=== PATIENT | female | born 1965 | race Hispanic/Latino ===

== ENCOUNTER 2017-04-20 11:23 | Emergency (ER) | payer MEDICARE ==
[2017-04-20] MEDS ORDERED: KETOROLAC TROMETHAMINE 60 MG/2 ML VIAL ONE (11:55)
== END 2017-04-20 13:06 | disposition home or self-care (01) ==
LOC: EDH 11:23
DX: R51 Headache (principal); H53.8 Other visual disturbances; E11.9 Type 2 diabetes mellitus without complications; E78.00 Pure hypercholesterolemia, unspecified; I10 Essential (primary) hypertension; Z72.0 Tobacco use; Z79.4 Long term (current) use of insulin
CPT/HCPCS: 70450; 96372; 99284; J1885

== ENCOUNTER → 2019-09-12 | Outpatient (CLI) | payer OTHER | END | disposition home or self-care (01) | LOC: RAH 08:19 | PROVIDERS: ATTEND Internal Medicine | DX: N18.3 Chronic kidney disease, stage 3 (moderate) (principal); N28.1 Cyst of kidney, acquired ==

== ENCOUNTER 2021-01-15 07:52 | Inpatient (IN) | payer OTHER ==
[2021-01-15] VITALS (12 sets, daily range): BP systolic 102–127; BP diastolic 51–63
[~2021-01-15] VITALS: Ht 160 cm; Wt 88.8 kg
[2021-01-15 08:35] LABS: BASOPHILS % (AUTO) 0.2 % (0.0-5.0); EOSINOPHILS % (AUTO) 1.1 % (0.0-8.0); HEMATOCRIT 31.7 % (36-48); LYMPHOCYTES % (AUTO) 17.8 % (21.0-51.0); MEAN CORPUSCULAR HEMOGLOBIN 29.2 pg (27.0-33.0); MEAN CORPUSCULAR VOLUME 97.5 fL (79-99); MONOCYTES % (AUTO) 5.6 % (3.0-13.0); NEUTROPHILS % (AUTO) 74.6 % (40.0-77.0); NUCLEATED RED BLOOD CELLS 0.4 % (0.0-0.19); PLATELET COUNT (AUTO) 254 K/uL (130-400); RED BLOOD CELL COUNT(AUTO) 3.25 MIL/uL (4.00-5.50); RED CELL DISTRIBUTION WIDTH 15.7 % (11.0-15.5); WHITE BLOOD COUNT (AUTO) 8.4 K/uL (4.8-10.8)
[2021-01-15 08:40] LABS: ABG BASE EXCESS -9.1 mmol/L (-2.0-3.0); ABG HCO3 19.2 mmol/L (21.0-28.0); ABG OXYGEN SATURATION 83.4 % (95.0-99.0); ABG PCO2 51 mmHg (32-45)
[2021-01-15 08:45] LABS: CREATININE 4.6 mg/dL (0.5-1.5); POTASSIUM 4.9 mmol/L (3.5-5.1)
[2021-01-15 08:56] LABS: ALBUMIN 2.7 g/dL (3.5-5.0); BILIRUBIN,TOTAL 0.2 mg/dL (0.2-1.0); TOTAL PROTEIN, SERUM 6.6 g/dL (6.0-8.3)
[2021-01-15] MEDS ORDERED: FUROSEMIDE 40MG VIAL IV SCH ×2 (09:10→11:10)
[2021-01-15] MEDS ORDERED: ASPIRIN 325MG TAB PO SCH (09:30)
[2021-01-15] MEDS ORDERED: DEXTROSE 50%-WATER 50 ML DISP.SYRIN IV ONE (10:28)
[2021-01-15] MEDS: FAMOTIDINE 20MG VIAL IV SCH (10:28)
[2021-01-15] MEDS ORDERED: GLUCAGON 1MG KIT 1 MG ML IM PRN ×2 (10:30→11:00)
[2021-01-15] MEDS ORDERED: MAGNESIUM 2GM PREMIX 50ML 50 ML IV PRN ×2 (10:30→11:00)
[2021-01-15 10:44] LABS: APPEARANCE,URINE Turbid (CLEAR); BILIRUBIN,URINE Negative (NEGATIVE); COLOR,URINE Yellow (YELLOW); GLUCOSE, URINE (UA) Negative (NEGATIVE); KETONES,URINE Negative (NEGATIVE); LEUKOCYTE ESTERASE ,URINE Negative (NEGATIVE); NITRATE,URINE Negative (NEGATIVE); OCCULT BLOOD,URINE Negative (NEGATIVE); PROTEIN,URINE 300 mg/dL (NEGATIVE); UROBILINOGEN,URINE 0.2 mg/dL (0.2-1.0)
[2021-01-15 10:46] LABS: HEMOGLOBIN A1C 8.5 % (4.0-6.0)
[2021-01-15] MEDS: HEPARIN 5,000 UNIT VIAL SQ SCH ×2 (11:00→23:04)
[2021-01-15] MEDS ORDERED: DEXTROSE 50%-WATER 50 ML DISP.SYRIN IV PRN (11:00)
[2021-01-15] MEDS: NICOTINE 14 MG/ 24 HR PATCH TD SCH (11:11)
[2021-01-15 11:36] LABS: BACTERIA,URINE Moderate /HPF (None Seen)
[2021-01-15 11:37] LABS: AMORPHOUS SEDIMENT,UR Moderate /LPF (None Seen)
[2021-01-15 11:39] LABS: RBC,URINE 0-1 /HPF (0-1)
[2021-01-15 11:53] LABS: ABG BASE EXCESS -12.2 mmol/L (-2.0-3.0); ABG HCO3 19.4 mmol/L (21.0-28.0); ABG OXYGEN SATURATION 95.6 % (95.0-99.0); ABG PCO2 71 mmHg (32-45)
[2021-01-15] MEDS ORDERED: INSULIN HUMULIN R 100 UNIT/ML 3ML SQ SCH (12:00)
[2021-01-15] MEDS ORDERED: SODIUM BICARB 50MEQ 50ML VIAL IV SCH (12:27)
[2021-01-15] MEDS ORDERED: SODIUM BICARB 50MEQ 50ML VIAL 100 ML ONE (12:27)
[2021-01-15 13:55] LABS: ABG BASE EXCESS -7.3 mmol/L (-2.0-3.0); ABG HCO3 22.4 mmol/L (21.0-28.0); ABG OXYGEN SATURATION 87.1 % (95.0-99.0); ABG PCO2 64 mmHg (32-45)
[2021-01-15] MEDS ORDERED: PROPOFOL 1000 MG/100 ML 100 ML IV ONE (14:29)
[2021-01-15] MEDS: CEFTRIAXONE 2GM VIAL IVP SCH (14:30)
[2021-01-15 15:37] LABS: ABG BASE EXCESS -6.9 mmol/L (-2.0-3.0); ABG HCO3 21.3 mmol/L (21.0-28.0); ABG OXYGEN SATURATION 96.5 % (95.0-99.0); ABG PCO2 53 mmHg (32-45)
[2021-01-15 16:22] LABS: INR 1.05 (0.85-1.15); PROTHROMBIN TIME 11.4 SEC (9.6-11.6)
[2021-01-15] MEDS: DEXTROSE 50%-WATER 50 ML DISP.SYRIN IV PRN ×2 (16:44→22:09)
[2021-01-15] MEDS ORDERED: AZITHROMYCIN 500MG VIAL IVPB SCH (17:00)
[2021-01-15] MEDS ORDERED: 0.9% NACL 250ML IVPB SCH (17:00)
[2021-01-15] MEDS ORDERED: ACETAMINOPHEN 325 MG SUPPOSITORY RC PRN (17:30)
[2021-01-15] MEDS: DEXTROSE 5%-WATER 1,000 ML IV SCH (17:30)
[2021-01-15] MEDS: ACETYLCYSTEINE 10% 100MG/ML 4ML VIAL IH SCH ×2 (18:00→23:40)
[2021-01-15] MEDS ORDERED: FENTANYL 2500MCG+NS 250ML 250 ML IV SCH (18:30)
[2021-01-15] MEDS: IPRATROPIUM/ALBUTEROL SULFATE 3 ML SOLUTION IH SCH ×2 (18:45→23:40)
[2021-01-15] MEDS: PROPOFOL 1000 MG/100 ML 100 ML IV SCH (20:30)
[2021-01-15] MEDS: INSULIN HUMULIN R 100 UNIT/ML 3ML SQ SCH (22:00)
[2021-01-15] MEDS ORDERED: AZITHROMYCIN 500MG+NS 250ML IV SCH (22:00)
[2021-01-15] MEDS: 0.9% NACL 250ML IVPB SCH (22:52)
[2021-01-15 23:25] LABS: ABG BASE EXCESS -3.1 mmol/L (-2.0-3.0); ABG HCO3 22.3 mmol/L (21.0-28.0); ABG OXYGEN SATURATION 97.4 % (95.0-99.0); ABG PCO2 41 mmHg (32-45)
[2021-01-16] VITALS (37 sets, daily range): BP systolic 80–178; BP diastolic 35–93
[2021-01-16] MEDS: INSULIN HUMULIN R 100 UNIT/ML 3ML SQ SCH ×12 (02:00→22:00)
[2021-01-16 03:56] LABS: HEMATOCRIT 26.9 % (36-48); MEAN CORPUSCULAR HEMOGLOBIN 29.2 pg (27.0-33.0); MEAN CORPUSCULAR HGB CONC 31.6 g/dL (32.0-36.0); MEAN CORPUSCULAR VOLUME 92.4 fL (79-99); PLATELET COUNT (AUTO) 261 K/uL (130-400); RED BLOOD CELL COUNT(AUTO) 2.91 MIL/uL (4.00-5.50); RED CELL DISTRIBUTION WIDTH 15.4 % (11.0-15.5); WHITE BLOOD COUNT (AUTO) 6.3 K/uL (4.8-10.8)
[2021-01-16 04:05] LABS: INR 1.1 (0.85-1.15); PROTHROMBIN TIME 11.9 SEC (9.6-11.6)
[2021-01-16 04:08] LABS: ALBUMIN 2.2 g/dL (3.5-5.0); BILIRUBIN,TOTAL 0.2 mg/dL (0.2-1.0); CREATININE 4.3 mg/dL (0.5-1.5); MAGNESIUM 2.1 mg/dL (1.80-2.40); PHOSPHORUS 5.6 mg/dL (2.5-4.9); POTASSIUM 3.5 mmol/L (3.5-5.1); TOTAL PROTEIN, SERUM 5.6 g/dL (6.0-8.3); URIC ACID 11.7 mg/dL (2.6-7.2)
[2021-01-16 04:18] LABS: ABG BASE EXCESS -5.5 mmol/L (-2.0-3.0); ABG OXYGEN SATURATION 94.8 % (95.0-99.0); ABG PCO2 34 mmHg (32-45)
[2021-01-16] MEDS: PROPOFOL 1000 MG/100 ML 100 ML IV SCH ×2 (04:36→23:49)
[2021-01-16 04:39] LABS: BASOPHILS % (MANUAL) 1 % (0-2); EOSINOPHILS % (MANUAL) 5 % (1-6); LYMPHOCYTES % (MANUAL) 10 % (22-44); MONOCYTES % (MANUAL) 6 % (2-9); SEGMENTED NEUTROPHILS % 78 % (40-70)
[2021-01-16 04:40] LABS: MAN.DIFF COMMENT-IMPRESSION MANUAL DIFFERENTIAL; PLATELET MORPHOLOGY COMMENT ADEQUATE
[2021-01-16] MEDS: IPRATROPIUM/ALBUTEROL SULFATE 3 ML SOLUTION IH SCH ×5 (07:17→23:14)
[2021-01-16] MEDS ORDERED: ENOXAPARIN SODIUM 40 MG/0.4 ML SYRINGE SQ SCH (09:00)
[2021-01-16] MEDS: NICOTINE 14 MG/ 24 HR PATCH TD SCH (09:00)
[2021-01-16] MEDS: FAMOTIDINE 20MG VIAL IV SCH (09:00)
[2021-01-16] MEDS ORDERED: POTASSIUM CHLORIDE 10MEQ/100ML 100 ML IV ONE (09:41)
[2021-01-16] MEDS: ACETYLCYSTEINE 10% 100MG/ML 4ML VIAL IH SCH ×4 (11:16→23:14)
[2021-01-16] MEDS: HEPARIN 5,000 UNIT VIAL SQ SCH ×2 (11:24→23:05)
[2021-01-16] MEDS: FLUCONAZOLE 400 MG/NS 200 ML 200 ML IV SCH (11:53)
[2021-01-16] MEDS: METOCLOPRAMIDE 10 MG/2 ML VIAL IVP SCH ×2 (11:53→18:12)
[2021-01-16] MEDS ORDERED: PERFLUTREN PROTEIN-A MICROSPHR 0.22 MG/ML VIAL IV SCH (14:00)
[2021-01-16] MEDS: DEXTROSE 5%-WATER 1,000 ML IV SCH (14:16)
[2021-01-16] MEDS: CEFTRIAXONE 2GM VIAL IVP SCH (14:17)
[2021-01-16] MEDS ORDERED: LIDOCAINE HCL 1% MDV 50ML VIAL ONE (15:23)
[2021-01-16] MEDS ORDERED: HEPARIN 1,000 UNIT VIAL ONE (15:23)
[2021-01-16] MEDS: 0.9% NACL 250ML IVPB SCH (20:39)
[2021-01-17] VITALS (76 sets, daily range): BP systolic 77–166; BP diastolic 30–83
[2021-01-17] MEDS: IPRATROPIUM/ALBUTEROL SULFATE 3 ML SOLUTION IH SCH ×6 (01:37→22:45)
[2021-01-17] MEDS: ACETYLCYSTEINE 10% 100MG/ML 4ML VIAL IH SCH ×6 (01:37→22:45)
[2021-01-17] MEDS: INSULIN HUMULIN R 100 UNIT/ML 3ML SQ SCH ×11 (02:00→20:00)
[2021-01-17] MEDS: PROPOFOL 1000 MG/100 ML 100 ML IV SCH ×4 (03:47→22:30)
[2021-01-17 03:49] LABS: HEMATOCRIT 29.8 % (36-48); MEAN CORPUSCULAR HEMOGLOBIN 29.3 pg (27.0-33.0); MEAN CORPUSCULAR HGB CONC 30.9 g/dL (32.0-36.0); MEAN CORPUSCULAR VOLUME 94.9 fL (79-99); RED BLOOD CELL COUNT(AUTO) 3.14 MIL/uL (4.00-5.50); RED CELL DISTRIBUTION WIDTH 16.1 % (11.0-15.5)
[2021-01-17 03:51] LABS: ABG BASE EXCESS -5.8 mmol/L (-2.0-3.0); ABG HCO3 21.3 mmol/L (21.0-28.0); ABG OXYGEN SATURATION 96.3 % (95.0-99.0); ABG PCO2 47 mmHg (32-45)
[2021-01-17 04:03] LABS: ALBUMIN 2.1 g/dL (3.5-5.0); BILIRUBIN,TOTAL 0.2 mg/dL (0.2-1.0); CREATININE 4.2 mg/dL (0.5-1.5); POTASSIUM 4.1 mmol/L (3.5-5.1); TOTAL PROTEIN, SERUM 5.8 g/dL (6.0-8.3)
[2021-01-17] MEDS: METOCLOPRAMIDE 10 MG/2 ML VIAL IVP SCH ×3 (06:37→16:55)
[2021-01-17] MEDS: NICOTINE 14 MG/ 24 HR PATCH TD SCH (07:55)
[2021-01-17] MEDS: HEPARIN 5,000 UNIT VIAL SQ SCH ×2 (08:00→17:20)
[2021-01-17] MEDS: FLUCONAZOLE 400 MG/NS 200 ML 200 ML IV SCH (08:00)
[2021-01-17] MEDS: FAMOTIDINE 20MG VIAL IV SCH (08:00)
[2021-01-17] MEDS: DEXTROSE 5%-WATER 1,000 ML IV SCH (08:01)
[2021-01-17 08:04] LABS: INR 1.08 (0.85-1.15); PROTHROMBIN TIME 11.7 SEC (9.6-11.6)
[2021-01-17 08:05] LABS: PARTIAL THROMBOPLASTIN TIME 28.9 SEC (26.3-35.5)
[2021-01-17] MEDS ORDERED: LISINOPRIL 20 MG TABLET PO SCH (09:00)
[2021-01-17] MEDS ORDERED: NOREPINEPHRIN 8MG/250ML NS PMX 250 ML IV PRN (09:30)
[2021-01-17] MEDS ORDERED: LACTULOSE 20 GM/30 ML UDCUP PO PRN (09:30)
[2021-01-17] MEDS ORDERED: PHARMACY COMMUNICATION MISC SCH ×2 (09:30→16:30)
[2021-01-17 09:43] LABS: CHOLESTEROL 116 mg/dL (<200); HDL CHOLESTEROL 33 mg/dL (35-85); LDL DIRECT 43 mg/dL (0-99); TRIGLYCERIDES 271 mg/dL (30-200)
[2021-01-17 09:56] LABS: % IRON SATURATION 9.2 % (22-44)
[2021-01-17] MEDS ORDERED: NOREPINEPHRIN 4MG/NS 250ML 250 ML IV SCH (10:00)
[2021-01-17] MEDS: CEFTRIAXONE 2GM VIAL IVP SCH (13:30)
[2021-01-17] MEDS ORDERED: 0.9%NACL 1000ML 2,000 ML IV ONE (14:21)
[2021-01-17] MEDS ORDERED: ALBUMIN (HUMAN) 25% 100 ML IV PRN (16:00)
[2021-01-17] MEDS: 0.9% NACL 250ML IVPB SCH (22:00)
[2021-01-18] VITALS (79 sets, daily range): BP systolic 99–202; BP diastolic 28–98
[2021-01-18] MEDS: PROPOFOL 1000 MG/100 ML 100 ML IV SCH ×7 (01:27→23:38)
[2021-01-18] MEDS: IPRATROPIUM/ALBUTEROL SULFATE 3 ML SOLUTION IH SCH ×6 (02:52→21:57)
[2021-01-18] MEDS: ACETYLCYSTEINE 10% 100MG/ML 4ML VIAL IH SCH ×6 (02:52→21:57)
[2021-01-18 05:33] LABS: HEMATOCRIT 29.3 % (36-48); MEAN CORPUSCULAR HEMOGLOBIN 29.2 pg (27.0-33.0); MEAN CORPUSCULAR HGB CONC 31.4 g/dL (32.0-36.0); RED BLOOD CELL COUNT(AUTO) 3.15 MIL/uL (4.00-5.50); RED CELL DISTRIBUTION WIDTH 15.8 % (11.0-15.5); WHITE BLOOD COUNT (AUTO) 5.9 K/uL (4.8-10.8)
[2021-01-18] MEDS: INSULIN HUMULIN R 100 UNIT/ML 3ML SQ SCH ×3 (05:41→12:00)
[2021-01-18 05:42] LABS: CREATININE 3.5 mg/dL (0.5-1.5); POTASSIUM 3.8 mmol/L (3.5-5.1)
[2021-01-18 08:15] LABS: HEPATITIS Bs ANTIGEN SCREEN P Negative (Negative)
[2021-01-18] MEDS: METOCLOPRAMIDE 10 MG/2 ML VIAL IVP SCH ×3 (08:22→15:20)
[2021-01-18] MEDS: NICOTINE 14 MG/ 24 HR PATCH TD SCH (08:23)
[2021-01-18] MEDS: FLUCONAZOLE 400 MG/NS 200 ML 200 ML IV SCH (08:23)
[2021-01-18] MEDS: FAMOTIDINE 20MG VIAL IV SCH (08:23)
[2021-01-18] MEDS ORDERED: LINA72CA PO (08:26)
[2021-01-18] MEDS ORDERED: FLUT1BLS IH (08:26)
[2021-01-18] MEDS ORDERED: GABA-529 PO (08:26)
[2021-01-18] MEDS ORDERED: AMLO-257 PO (08:26)
[2021-01-18] MEDS ORDERED: INSU100I13 SQ ×2 (08:26)
[2021-01-18] MEDS ORDERED: FOLI0.8T22 PO (08:26)
[2021-01-18] MEDS ORDERED: FERR325T29 PO (08:26)
[2021-01-18] MEDS ORDERED: ERGO500093 PO (08:26)
[2021-01-18] MEDS ORDERED: FURO20TA4 PO (08:26)
[2021-01-18] MEDS ORDERED: CALC667C10 PO (08:26)
[2021-01-18] MEDS ORDERED: ATOR20TA65 PO (08:26)
[2021-01-18] MEDS ORDERED: SODI650T PO (08:26)
[2021-01-18] MEDS ORDERED: LOSA50TA64 PO (08:26)
[2021-01-18] MEDS ORDERED: METO-408 PO (08:26)
[2021-01-18] MEDS ORDERED: SODI10PO2 PO (08:26)
[2021-01-18] MEDS: HEPARIN 5,000 UNIT VIAL SQ SCH ×2 (11:00→23:01)
[2021-01-18] MEDS ORDERED: HEPARIN 5,000 UNIT VIAL IV SCH (11:30)
[2021-01-18] MEDS ORDERED: PHARMACY COMMUNICATION MISC SCH (15:30)
[2021-01-18] MEDS: ZOSYN 3.375GM +NS 50ML IV SCH (17:15)
[2021-01-18] MEDS: 0.9% NACL 250ML IVPB SCH (22:00)
[2021-01-19] VITALS (35 sets, daily range): BP systolic 100–202; BP diastolic 56–97
[2021-01-19] MEDS: PROPOFOL 1000 MG/100 ML 100 ML IV SCH ×4 (01:14→09:56)
[2021-01-19] MEDS: IPRATROPIUM/ALBUTEROL SULFATE 3 ML SOLUTION IH SCH ×6 (02:50→23:13)
[2021-01-19] MEDS: ACETYLCYSTEINE 10% 100MG/ML 4ML VIAL IH SCH ×6 (02:51→23:13)
[2021-01-19] MEDS: ZOSYN 3.375GM +NS 50ML IV SCH ×2 (04:56→19:30)
[2021-01-19] MEDS: INSULIN HUMULIN R 100 UNIT/ML 3ML SQ SCH ×4 (06:00→18:00)
[2021-01-19] MEDS: METOCLOPRAMIDE 10 MG/2 ML VIAL IVP SCH ×3 (06:50→17:00)
[2021-01-19] MEDS: FAMOTIDINE 20MG VIAL IV SCH (08:21)
[2021-01-19] MEDS: NICOTINE 14 MG/ 24 HR PATCH TD SCH (08:21)
[2021-01-19] MEDS: HEPARIN 5,000 UNIT VIAL SQ SCH ×2 (09:59→23:49)
[2021-01-19] MEDS ORDERED: FENTANYL 2500MCG+NS 250ML 250 ML IV ONE ×2 (10:19→22:46)
[2021-01-19] MEDS ORDERED: FENTANYL CITRATE PF 0.05 MG/ML 2,500 MCG in 0.9%NACL 100ML 250 ML IVPB SCH (10:30)
[2021-01-19] MEDS: MIDAZOLAM 100MG-0.9% NS 100ML 100ML BAG IV SCH (10:51)
[2021-01-19] MEDS ORDERED: 0.9%NACL 1000ML 1,000 ML IV ONE (17:27)
[2021-01-19] MEDS: HEPARIN 5,000 UNIT VIAL IV SCH (19:21)
[2021-01-19] MEDS: 0.9% NACL 250ML IVPB SCH (22:00)
[2021-01-20] VITALS (23 sets, daily range): BP systolic 108–160; BP diastolic 47–68
[2021-01-20] MEDS: ACETYLCYSTEINE 10% 100MG/ML 4ML VIAL IH SCH ×3 (02:02→09:32)
[2021-01-20] MEDS: IPRATROPIUM/ALBUTEROL SULFATE 3 ML SOLUTION IH SCH ×5 (02:02→23:16)
[2021-01-20] MEDS: MIDAZOLAM 100MG-0.9% NS 100ML 100ML BAG IV SCH (03:22)
[2021-01-20] MEDS: ZOSYN 3.375GM +NS 50ML IV SCH ×2 (03:51→16:12)
[2021-01-20] MEDS: INSULIN HUMULIN R 100 UNIT/ML 3ML SQ SCH ×4 (06:00→17:50)
[2021-01-20 08:17] LABS: HEMATOCRIT 32.3 % (36-48); MEAN CORPUSCULAR HEMOGLOBIN 28.5 pg (27.0-33.0); RED BLOOD CELL COUNT(AUTO) 3.51 MIL/uL (4.00-5.50); RED CELL DISTRIBUTION WIDTH 15.5 % (11.0-15.5); WHITE BLOOD COUNT (AUTO) 6.7 K/uL (4.8-10.8)
[2021-01-20 08:28] LABS: CREATININE 3.8 mg/dL (0.5-1.5)
[2021-01-20] MEDS: METOCLOPRAMIDE 10 MG/2 ML VIAL IVP SCH ×3 (09:37→18:01)
[2021-01-20] MEDS: FAMOTIDINE 20MG VIAL IV SCH (09:37)
[2021-01-20] MEDS: NICOTINE 14 MG/ 24 HR PATCH TD SCH (09:39)
[2021-01-20] MEDS: SOLU-MEDROL 40MG VIAL IVP SCH ×2 (13:24→18:01)
[2021-01-20] MEDS: HEPARIN 5,000 UNIT VIAL SQ SCH ×2 (13:26→22:21)
[2021-01-20] MEDS: FENTANYL 2500MCG+NS 250ML 250 ML IV SCH (19:01)
[2021-01-20] MEDS: 0.9% NACL 250ML IVPB SCH (21:05)
[2021-01-21] VITALS (37 sets, daily range): BP systolic 109–174; BP diastolic 45–78
[2021-01-21] MEDS: SOLU-MEDROL 40MG VIAL IVP SCH ×4 (00:11→18:26)
[2021-01-21] MEDS: INSULIN HUMULIN R 100 UNIT/ML 3ML SQ SCH ×4 (00:33→18:00)
[2021-01-21] MEDS: MIDAZOLAM 100MG-0.9% NS 100ML 100ML BAG IV SCH ×2 (03:45→22:51)
[2021-01-21 03:47] LABS: ABG OXYGEN SATURATION 92.3 % (95.0-99.0); ABG PCO2 41 mmHg (32-45)
[2021-01-21] MEDS: ZOSYN 3.375GM +NS 50ML IV SCH ×2 (04:00→16:47)
[2021-01-21 05:44] LABS: BASOPHILS % (AUTO) 0.4 % (0.0-5.0); HEMATOCRIT 31.1 % (36-48); LYMPHOCYTES % (AUTO) 6.7 % (21.0-51.0); MEAN CORPUSCULAR HGB CONC 31.2 g/dL (32.0-36.0); MEAN CORPUSCULAR VOLUME 92.8 fL (79-99); PLATELET COUNT (AUTO) 275 K/uL (130-400); RED BLOOD CELL COUNT(AUTO) 3.35 MIL/uL (4.00-5.50); RED CELL DISTRIBUTION WIDTH 15.2 % (11.0-15.5); WHITE BLOOD COUNT (AUTO) 6.7 K/uL (4.8-10.8)
[2021-01-21 05:55] LABS: CREATININE 5.1 mg/dL (0.5-1.5); MAGNESIUM 2.7 mg/dL (1.80-2.40); POTASSIUM 5.8 mmol/L (3.5-5.1)
[2021-01-21 05:57] LABS: INR 1.01 (0.85-1.15)
[2021-01-21 05:58] LABS: PARTIAL THROMBOPLASTIN TIME 29.1 SEC (26.3-35.5)
[2021-01-21] MEDS: IPRATROPIUM/ALBUTEROL SULFATE 3 ML SOLUTION IH SCH ×4 (06:41→23:13)
[2021-01-21] MEDS ORDERED: DIATR MEGLU/DIATRIZOATE SODIUM 30 ML BOTTLE ONE (08:32)
[2021-01-21] MEDS: NICOTINE 14 MG/ 24 HR PATCH TD SCH (08:35)
[2021-01-21] MEDS: FAMOTIDINE 20MG VIAL IV SCH (08:36)
[2021-01-21] MEDS: METOCLOPRAMIDE 10 MG/2 ML VIAL IVP SCH ×3 (08:36→18:26)
[2021-01-21] MEDS: HEPARIN 5,000 UNIT VIAL SQ SCH ×2 (10:54→19:10)
[2021-01-21] MEDS ORDERED: 0.9%NACL 50ML 50 ML IV ONE (16:51)
[2021-01-21] MEDS ORDERED: 0.9%NACL 1000ML 1,000 ML IV ONE (18:19)
[2021-01-21] MEDS: 0.9% NACL 250ML IVPB SCH (21:19)
[2021-01-21] MEDS: BALSAM PERU/CASTOR OIL 60 GM TUBE TP SCH (21:21)
[2021-01-21] MEDS: FENTANYL 2500MCG+NS 250ML 250 ML IV SCH (22:54)
[2021-01-22] VITALS (23 sets, daily range): BP systolic 99–158; BP diastolic 47–71
[2021-01-22] MEDS: SOLU-MEDROL 40MG VIAL IVP SCH ×3 (00:05→17:54)
[2021-01-22] MEDS: INSULIN HUMULIN R 100 UNIT/ML 3ML SQ SCH ×5 (00:07→23:34)
[2021-01-22] MEDS ORDERED: 0.9%NACL 50ML 50 ML IV ONE ×2 (04:25→23:53)
[2021-01-22] MEDS: ZOSYN 3.375GM +NS 50ML IV SCH ×2 (05:18→17:54)
[2021-01-22 05:32] LABS: BASOPHILS % (AUTO) 0.1 % (0.0-5.0); HEMATOCRIT 32.5 % (36-48); LYMPHOCYTES % (AUTO) 5.9 % (21.0-51.0); MEAN CORPUSCULAR HEMOGLOBIN 28.3 pg (27.0-33.0); MEAN CORPUSCULAR HGB CONC 30.8 g/dL (32.0-36.0); MEAN CORPUSCULAR VOLUME 92.1 fL (79-99); MONOCYTES % (AUTO) 3.2 % (3.0-13.0); NEUTROPHILS % (AUTO) 89.7 % (40.0-77.0); PLATELET COUNT (AUTO) 284 K/uL (130-400); RED BLOOD CELL COUNT(AUTO) 3.53 MIL/uL (4.00-5.50); RED CELL DISTRIBUTION WIDTH 14.9 % (11.0-15.5); WHITE BLOOD COUNT (AUTO) 7.6 K/uL (4.8-10.8)
[2021-01-22 05:52] LABS: CREATININE 4.3 mg/dL (0.5-1.5); MAGNESIUM 2.5 mg/dL (1.80-2.40); PHOSPHORUS 12.1 mg/dL (2.5-4.9); POTASSIUM 5.2 mmol/L (3.5-5.1)
[2021-01-22 06:12] LABS: ABG BASE EXCESS -8.2 mmol/L (-2.0-3.0); ABG HCO3 16.6 mmol/L (21.0-28.0); ABG OXYGEN SATURATION 94.6 % (95.0-99.0); ABG PCO2 33 mmHg (32-45)
[2021-01-22] MEDS: IPRATROPIUM/ALBUTEROL SULFATE 3 ML SOLUTION IH SCH ×4 (06:30→23:21)
[2021-01-22] MEDS: METOCLOPRAMIDE 10 MG/2 ML VIAL IVP SCH ×3 (07:30→18:33)
[2021-01-22] MEDS: FAMOTIDINE 20MG VIAL IV SCH (08:24)
[2021-01-22] MEDS: NICOTINE 14 MG/ 24 HR PATCH TD SCH (08:24)
[2021-01-22] MEDS: BALSAM PERU/CASTOR OIL 60 GM TUBE TP SCH ×3 (08:25→20:16)
[2021-01-22] MEDS: HEPARIN 5,000 UNIT VIAL SQ SCH ×2 (11:59→23:32)
[2021-01-22] MEDS: CHLORHEXIDINE GLUCONATE 473 ML MOUTHWASH MM SCH ×3 (12:00→23:48)
[2021-01-22] MEDS: 0.9% NACL 250ML IVPB SCH (20:15)
[2021-01-22] MEDS: MIDAZOLAM 100MG-0.9% NS 100ML 100ML BAG IV SCH (21:43)
[2021-01-22] MEDS: FENTANYL 2500MCG+NS 250ML 250 ML IV SCH (21:46)
[2021-01-23] VITALS (57 sets, daily range): BP systolic 90–165; BP diastolic 42–87
[2021-01-23] MEDS: METOCLOPRAMIDE 10 MG/2 ML VIAL IVP SCH ×4 (00:31→17:19)
[2021-01-23] MEDS: ZOSYN 3.375GM +NS 50ML IV SCH ×2 (04:04→18:26)
[2021-01-23 04:20] LABS: HEMATOCRIT 29.6 % (36-48); MEAN CORPUSCULAR HEMOGLOBIN 28.5 pg (27.0-33.0); MEAN CORPUSCULAR HGB CONC 31.1 g/dL (32.0-36.0); MEAN CORPUSCULAR VOLUME 91.6 fL (79-99); RED BLOOD CELL COUNT(AUTO) 3.23 MIL/uL (4.00-5.50); RED CELL DISTRIBUTION WIDTH 14.4 % (11.0-15.5); WHITE BLOOD COUNT (AUTO) 10.9 K/uL (4.8-10.8)
[2021-01-23 04:21] LABS: POTASSIUM 4.3 mmol/L (3.5-5.1)
[2021-01-23] MEDS: INSULIN HUMULIN R 100 UNIT/ML 3ML SQ SCH ×3 (05:55→17:33)
[2021-01-23] MEDS: SOLU-MEDROL 40MG VIAL IVP SCH ×2 (05:55→17:18)
[2021-01-23] MEDS: CHLORHEXIDINE GLUCONATE 473 ML MOUTHWASH MM SCH ×3 (05:56→17:19)
[2021-01-23] MEDS: IPRATROPIUM/ALBUTEROL SULFATE 3 ML SOLUTION IH SCH ×3 (06:45→18:31)
[2021-01-23] MEDS: BALSAM PERU/CASTOR OIL 60 GM TUBE TP SCH ×3 (08:52→21:00)
[2021-01-23] MEDS: NICOTINE 14 MG/ 24 HR PATCH TD SCH (08:52)
[2021-01-23] MEDS: FAMOTIDINE 20MG VIAL IV SCH (08:52)
[2021-01-23] MEDS: HEPARIN 5,000 UNIT VIAL SQ SCH ×2 (11:16→22:43)
[2021-01-23] MEDS ORDERED: 0.9%NACL 1000ML 1,000 ML IV ONE (14:17)
[2021-01-23] MEDS: DEXMEDETOMIDINE 400MCG/NS100ML IV SCH ×2 (16:26→22:29)
[2021-01-23] MEDS: HEPARIN 5,000 UNIT VIAL IV SCH (18:14)
[2021-01-23] MEDS: 0.9% NACL 250ML IVPB SCH (22:00)
[2021-01-24] VITALS (36 sets, daily range): BP systolic 96–177; BP diastolic 39–104
[2021-01-24] MEDS: CHLORHEXIDINE GLUCONATE 473 ML MOUTHWASH MM SCH ×4 (00:31→18:00)
[2021-01-24] MEDS: IPRATROPIUM/ALBUTEROL SULFATE 3 ML SOLUTION IH SCH ×4 (00:46→18:14)
[2021-01-24] MEDS: INSULIN HUMULIN R 100 UNIT/ML 3ML SQ SCH ×4 (01:15→18:00)
[2021-01-24] MEDS: METOCLOPRAMIDE 10 MG/2 ML VIAL IVP SCH ×4 (02:29→19:30)
[2021-01-24] MEDS ORDERED: CYCL30DR OP (04:06)
[2021-01-24] MEDS: ZOSYN 3.375GM +NS 50ML IV SCH ×2 (04:11→17:44)
[2021-01-24 04:19] LABS: BASOPHILS % (AUTO) 0.2 % (0.0-5.0); HEMATOCRIT 31.4 % (36-48); LYMPHOCYTES % (AUTO) 8.5 % (21.0-51.0); MEAN CORPUSCULAR HEMOGLOBIN 28.3 pg (27.0-33.0); MEAN CORPUSCULAR HGB CONC 31.5 g/dL (32.0-36.0); MEAN CORPUSCULAR VOLUME 89.7 fL (79-99); MONOCYTES % (AUTO) 6.4 % (3.0-13.0); NEUTROPHILS % (AUTO) 84.3 % (40.0-77.0); PLATELET COUNT (AUTO) 259 K/uL (130-400); RED CELL DISTRIBUTION WIDTH 14.2 % (11.0-15.5); WHITE BLOOD COUNT (AUTO) 8.6 K/uL (4.8-10.8)
[2021-01-24 04:31] LABS: CREATININE 3.9 mg/dL (0.5-1.5); POTASSIUM 3.6 mmol/L (3.5-5.1)
[2021-01-24] MEDS: DEXMEDETOMIDINE 400MCG/NS100ML IV SCH (06:20)
[2021-01-24] MEDS: SOLU-MEDROL 40MG VIAL IVP SCH ×2 (06:22→17:44)
[2021-01-24 08:11] LABS: ABG BASE EXCESS -5.9 mmol/L (-2.0-3.0); ABG HCO3 19.8 mmol/L (21.0-28.0); ABG OXYGEN SATURATION 94.3 % (95.0-99.0); ABG PCO2 40 mmHg (32-45)
[2021-01-24] MEDS ORDERED: SODIUM BICARB 50MEQ 50ML VIAL IV SCH (08:30)
[2021-01-24] MEDS: NICOTINE 14 MG/ 24 HR PATCH TD SCH (09:32)
[2021-01-24] MEDS: FAMOTIDINE 20MG VIAL IV SCH (09:32)
[2021-01-24] MEDS: BALSAM PERU/CASTOR OIL 60 GM TUBE TP SCH ×3 (09:33→21:30)
[2021-01-24] MEDS: HEPARIN 5,000 UNIT VIAL SQ SCH (09:47)
[2021-01-24] MEDS ORDERED: HYDRALAZINE 20MG/ML VIAL IV PRN (10:00)
[2021-01-24] MEDS: SODIUM BICARBONATE 650 MG TAB PO SCH ×3 (11:30→21:00)
[2021-01-24] MEDS ORDERED: GLYCOPYRROLATE 1 MG/5 ML SYRINGE IV SCH (17:30)
[2021-01-24] MEDS: 0.9% NACL 250ML IVPB SCH (22:00)
[2021-01-25 00:02] VITALS: BP 142/60
[2021-01-25] MEDS: HEPARIN 5,000 UNIT VIAL SQ SCH ×3 (00:21→21:53)
[2021-01-25] MEDS: INSULIN HUMULIN R 100 UNIT/ML 3ML SQ SCH ×4 (00:24→18:00)
[2021-01-25] MEDS: METOCLOPRAMIDE 10 MG/2 ML VIAL IVP SCH ×4 (00:26→19:51)
[2021-01-25] MEDS: IPRATROPIUM/ALBUTEROL SULFATE 3 ML SOLUTION IH SCH ×4 (00:34→18:50)
[2021-01-25 03:02] VITALS: BP 141/59
[2021-01-25 03:53] LABS: HEMATOCRIT 34.4 % (36-48); MEAN CORPUSCULAR HGB CONC 31.4 g/dL (32.0-36.0); MEAN CORPUSCULAR VOLUME 92.2 fL (79-99); PLATELET COUNT (AUTO) 275 K/uL (130-400); RED BLOOD CELL COUNT(AUTO) 3.73 MIL/uL (4.00-5.50); RED CELL DISTRIBUTION WIDTH 14.1 % (11.0-15.5); WHITE BLOOD COUNT (AUTO) 15.7 K/uL (4.8-10.8)
[2021-01-25 04:02] VITALS: BP 156/66
[2021-01-25 04:06] LABS: ALBUMIN 2.6 g/dL (3.5-5.0); BILIRUBIN,TOTAL 0.3 mg/dL (0.2-1.0); CREATININE 5.1 mg/dL (0.5-1.5); PHOSPHORUS 7.4 mg/dL (2.5-4.9); POTASSIUM 3.2 mmol/L (3.5-5.1); TOTAL PROTEIN, SERUM 7.2 g/dL (6.0-8.3)
[2021-01-25 04:55] LABS: BAND NEUTROPHILS % (MANUAL) 3 % (0-2); LYMPHOCYTES % (MANUAL) 7 % (22-44); MONOCYTES % (MANUAL) 7 % (2-9); REACTIVE LYMPHOCYTES 3 % (0-0); SEGMENTED NEUTROPHILS % 80 % (40-70)
[2021-01-25 04:56] LABS: MAN.DIFF COMMENT-IMPRESSION MANUAL DIFFERENTIAL; PLATELET MORPHOLOGY COMMENT ADEQUATE
[2021-01-25] MEDS: ZOSYN 3.375GM +NS 50ML IV SCH ×2 (05:07→18:25)
[2021-01-25] MEDS: SOLU-MEDROL 40MG VIAL IVP SCH ×2 (05:07→18:24)
[2021-01-25] MEDS: CHLORHEXIDINE GLUCONATE 473 ML MOUTHWASH MM SCH ×4 (05:52→18:00)
[2021-01-25] MEDS: SODIUM BICARBONATE 650 MG TAB PO SCH ×2 (07:30→11:30)
[2021-01-25] MEDS: BALSAM PERU/CASTOR OIL 60 GM TUBE TP SCH ×2 (07:55→21:00)
[2021-01-25] MEDS: FAMOTIDINE 20MG VIAL IV SCH (07:55)
[2021-01-25] MEDS: NICOTINE 14 MG/ 24 HR PATCH TD SCH (09:00)
[2021-01-25 18:03] VITALS: BP 150/77
[2021-01-25] MEDS: M.V.I. IV [ADULT] 10 ML in CLINIMIX-E4.25%AA/D5+LYT2000ML 2,000 ML IV SCH (18:54)
[2021-01-25 20:00] VITALS: BP 153/70
[2021-01-25] MEDS: 0.9% NACL 250ML IVPB SCH (22:00)
[2021-01-26] VITALS: BP 171/84
[2021-01-26] MEDS: IPRATROPIUM/ALBUTEROL SULFATE 3 ML SOLUTION IH SCH ×5 (00:25→23:35)
[2021-01-26] MEDS: INSULIN HUMULIN R 100 UNIT/ML 3ML SQ SCH ×4 (02:39→16:07)
[2021-01-26] MEDS: METOCLOPRAMIDE 10 MG/2 ML VIAL IVP SCH ×4 (02:43→20:59)
[2021-01-26 04:00] VITALS: BP 170/70
[2021-01-26 05:51] LABS: HEMATOCRIT 35.1 % (36-48); MEAN CORPUSCULAR HEMOGLOBIN 28.7 pg (27.0-33.0); MEAN CORPUSCULAR HGB CONC 31.1 g/dL (32.0-36.0); MEAN CORPUSCULAR VOLUME 92.4 fL (79-99); RED BLOOD CELL COUNT(AUTO) 3.8 MIL/uL (4.00-5.50); RED CELL DISTRIBUTION WIDTH 14.2 % (11.0-15.5); WHITE BLOOD COUNT (AUTO) 11.2 K/uL (4.8-10.8)
[2021-01-26] MEDS: CHLORHEXIDINE GLUCONATE 473 ML MOUTHWASH MM SCH ×4 (06:00→16:07)
[2021-01-26 06:02] LABS: CREATININE 5.2 mg/dL (0.5-1.5); POTASSIUM 3.5 mmol/L (3.5-5.1)
[2021-01-26] MEDS: ZOSYN 3.375GM +NS 50ML IV SCH ×2 (06:02→16:06)
[2021-01-26] MEDS: SOLU-MEDROL 40MG VIAL IVP SCH ×2 (06:02→20:59)
[2021-01-26] MEDS: FAMOTIDINE 20MG VIAL IV SCH (07:48)
[2021-01-26] MEDS: BALSAM PERU/CASTOR OIL 60 GM TUBE TP SCH ×3 (07:49→21:00)
[2021-01-26 08:00] VITALS: BP 177/68
[2021-01-26] MEDS: NICOTINE 14 MG/ 24 HR PATCH TD SCH (08:33)
[2021-01-26] MEDS ORDERED: PHARMACY COMMUNICATION MISC SCH (10:00)
[2021-01-26] MEDS: HEPARIN 5,000 UNIT VIAL SQ SCH ×2 (10:32→23:00)
[2021-01-26] MEDS: M.V.I. IV [ADULT] 10 ML in CLINIMIX-E4.25%AA/D5+LYT2000ML 2,000 ML IV SCH (10:55)
[2021-01-26 12:00] VITALS: BP 173/94
[2021-01-26] MEDS ORDERED: CLINIMIX-E4.25%AA/D5+LYT2000ML 2,000 ML IV ONE (14:00)
[2021-01-26 16:00] VITALS: BP 192/88
[2021-01-26] MEDS: 0.9% NACL 250ML IVPB SCH (19:44)
[2021-01-26 20:00] VITALS: BP 154/80
[2021-01-27] VITALS (35 sets, daily range): BP systolic 96–188; BP diastolic 51–119
[2021-01-27] MEDS: INSULIN HUMULIN R 100 UNIT/ML 3ML SQ SCH ×5 (00:11→22:33)
[2021-01-27] MEDS: CHLORHEXIDINE GLUCONATE 473 ML MOUTHWASH MM SCH ×4 (00:12→16:43)
[2021-01-27] MEDS: METOCLOPRAMIDE 10 MG/2 ML VIAL IVP SCH ×4 (02:16→16:44)
[2021-01-27] MEDS: IPRATROPIUM/ALBUTEROL SULFATE 3 ML SOLUTION IH SCH ×6 (03:35→22:39)
[2021-01-27] MEDS: ZOSYN 3.375GM +NS 50ML IV SCH ×2 (05:04→16:23)
[2021-01-27] MEDS: SOLU-MEDROL 40MG VIAL IVP SCH ×2 (06:58→18:09)
[2021-01-27 10:01] LABS: ABG HCO3 18.7 mmol/L (21.0-28.0); ABG OXYGEN SATURATION 91.9 % (95.0-99.0); ABG PCO2 34 mmHg (32-45)
[2021-01-27] MEDS: FAMOTIDINE 20MG VIAL IV SCH (10:01)
[2021-01-27] MEDS: NICOTINE 14 MG/ 24 HR PATCH TD SCH (10:01)
[2021-01-27] MEDS: BALSAM PERU/CASTOR OIL 60 GM TUBE TP SCH ×3 (10:04→20:42)
[2021-01-27 10:14] LABS: HEMATOCRIT 33.6 % (36-48); MEAN CORPUSCULAR HEMOGLOBIN 28.5 pg (27.0-33.0); MEAN CORPUSCULAR HGB CONC 31.8 g/dL (32.0-36.0); MEAN CORPUSCULAR VOLUME 89.6 fL (79-99); RED BLOOD CELL COUNT(AUTO) 3.75 MIL/uL (4.00-5.50); RED CELL DISTRIBUTION WIDTH 13.9 % (11.0-15.5); WHITE BLOOD COUNT (AUTO) 9.6 K/uL (4.8-10.8)
[2021-01-27 10:32] LABS: CREATININE 4.6 mg/dL (0.5-1.5); POTASSIUM 3.6 mmol/L (3.5-5.1)
[2021-01-27] MEDS: HEPARIN 5,000 UNIT VIAL SQ SCH ×2 (11:00→22:28)
[2021-01-27] MEDS: METOPROLOL TARTRATE 1 MG/ML 5ML VIAL IV PRN ×3 (13:16→14:10)
[2021-01-27] MEDS ORDERED: HEPARIN 1,000 UNIT VIAL ONE (14:37)
[2021-01-27] MEDS ORDERED: LIDOCAINE HCL 1% MDV 50ML VIAL ONE (14:38)
[2021-01-27] MEDS ORDERED: LORAZEPAM 2 MG/ML 1 ML VIAL IVP ONE (15:10)
[2021-01-27] MEDS ORDERED: DILTIAZEM 25MG INJ IVP ONE (15:56)
[2021-01-27] MEDS: DILTIAZEM 125 MG/25 ML INJ 125 MG in 0.9%NACL 100ML 100 ML IV PRN (16:24)
[2021-01-27] MEDS ORDERED: DILTIAZEM 25MG INJ IVP SCH (17:00)
[2021-01-27] MEDS ORDERED: INSULIN REGULAR, HUMAN 3ML 100 UNIT in 0.9%NACL 100ML 99 ML IV SCH ×2 (17:00)
[2021-01-27] MEDS ORDERED: INSULIN GLARGINE 100 UNITS/ML 10 ML VIAL SQ ONE (17:00)
[2021-01-27] MEDS: 0.9% NACL 250ML IVPB SCH (20:42)
[2021-01-27] MEDS: INSULIN GLARGINE 100 UNITS/ML 10 ML VIAL SQ SCH (20:48)
[2021-01-28] VITALS (42 sets, daily range): BP systolic 91–180; BP diastolic 46–107
[2021-01-28] MEDS: CHLORHEXIDINE GLUCONATE 473 ML MOUTHWASH MM SCH ×4 (00:05→17:17)
[2021-01-28] MEDS: METOCLOPRAMIDE 10 MG/2 ML VIAL IVP SCH ×4 (00:05→17:18)
[2021-01-28] MEDS: IPRATROPIUM/ALBUTEROL SULFATE 3 ML SOLUTION IH SCH ×6 (01:48→23:35)
[2021-01-28 04:07] LABS: HEMATOCRIT 37.8 % (36-48); MEAN CORPUSCULAR HEMOGLOBIN 28.7 pg (27.0-33.0); MEAN CORPUSCULAR HGB CONC 31.7 g/dL (32.0-36.0); MEAN CORPUSCULAR VOLUME 90.4 fL (79-99); RED BLOOD CELL COUNT(AUTO) 4.18 MIL/uL (4.00-5.50); RED CELL DISTRIBUTION WIDTH 14.3 % (11.0-15.5); WHITE BLOOD COUNT (AUTO) 12.7 K/uL (4.8-10.8)
[2021-01-28 04:23] LABS: CREATININE 5.1 mg/dL (0.5-1.5); POTASSIUM 3.3 mmol/L (3.5-5.1)
[2021-01-28] MEDS: SOLU-MEDROL 40MG VIAL IVP SCH ×2 (05:12→17:16)
[2021-01-28] MEDS: ZOSYN 3.375GM +NS 50ML IV SCH ×2 (05:12→16:18)
[2021-01-28] MEDS: INSULIN HUMULIN R 100 UNIT/ML 3ML SQ SCH ×3 (05:15→17:18)
[2021-01-28] MEDS: INSULIN GLARGINE 100 UNITS/ML 10 ML VIAL SQ SCH ×2 (05:19→20:58)
[2021-01-28] MEDS: FAMOTIDINE 20MG VIAL IV SCH (07:51)
[2021-01-28] MEDS: NICOTINE 14 MG/ 24 HR PATCH TD SCH (07:51)
[2021-01-28] MEDS: DILTIAZEM 125 MG/25 ML INJ 125 MG in 0.9%NACL 100ML 100 ML IV PRN (08:00)
[2021-01-28] MEDS ORDERED: 0.9% NACL 250ML IV SCH (08:00)
[2021-01-28] MEDS ORDERED: VANCOMYCIN PROTOCOL PER PHARMACY IV SCH (08:00)
[2021-01-28] MEDS ORDERED: VANCOMYCIN 1G VIAL IVPB SCH (08:00)
[2021-01-28] MEDS: BALSAM PERU/CASTOR OIL 60 GM TUBE TP SCH ×3 (08:05→21:00)
[2021-01-28] MEDS ORDERED: VANCOMYCIN KIT 1 GM/250 ML IV.KIT IV SCH (08:30)
[2021-01-28] MEDS ORDERED: 0.9% NACL 250ML 250 ML IV SCH (08:30)
[2021-01-28] MEDS: HEPARIN 5,000 UNIT VIAL SQ SCH (11:28)
[2021-01-28] MEDS ORDERED: LIDOCAINE HCL 2% VISCOUS 15 ML UDCUP ONE (13:32)
[2021-01-28] MEDS ORDERED: VANCOMYCIN 500MG+NS 100ML IV SCH (14:00)
[2021-01-28] MEDS ORDERED: 0.9%NACL 100ML 100 ML IV SCH (14:00)
[2021-01-28] MEDS: ZIPRASIDONE MESYLATE 20 MG/VIAL IM PRN (15:18)
[2021-01-28] MEDS: DILTIAZEM 60MG TAB JT SCH (17:17)
[2021-01-28 17:30] LABS: INR 1.23 (0.85-1.15); PROTHROMBIN TIME 13.2 SEC (9.6-11.6)
[2021-01-28 17:32] LABS: PARTIAL THROMBOPLASTIN TIME 25.4 SEC (26.3-35.5)
[2021-01-28 18:45] LABS: ABG BASE EXCESS -7.8 mmol/L (-2.0-3.0); ABG OXYGEN SATURATION 83.5 % (95.0-99.0); ABG PCO2 38 mmHg (32-45)
[2021-01-28] MEDS ORDERED: DEXMEDETOMIDINE 400MCG/NS100ML IV SCH (19:00)
[2021-01-28] MEDS ORDERED: DEXMEDETOMIDINE HCL 400 MCG in 0.9%NACL 100ML 100 ML IV SCH (19:00)
[2021-01-28] MEDS: DEXMEDETOMIDINE 400MCG/NS100ML IV SCH (19:21)
[2021-01-28] MEDS: BUDESONIDE 0.5 MG/2 ML INH IH SCH (19:34)
[2021-01-28] MEDS ORDERED: FUROSEMIDE 40MG VIAL IV ONE (20:00)
[2021-01-28 21:17] LABS: ABG HCO3 16.5 mmol/L (21.0-28.0); ABG PCO2 35 mmHg (32-45)
[2021-01-28] MEDS ORDERED: SODIUM BICARB 50MEQ 50ML VIAL IV ONE (22:00)
[2021-01-28] MEDS: 0.9% NACL 250ML IVPB SCH (22:00)
[2021-01-29] VITALS (64 sets, daily range): BP systolic 85–162; BP diastolic 39–101
[2021-01-29] MEDS: DILTIAZEM 60MG TAB JT SCH ×4 (00:01→17:30)
[2021-01-29] MEDS: CHLORHEXIDINE GLUCONATE 473 ML MOUTHWASH MM SCH ×4 (00:02→17:30)
[2021-01-29] MEDS: HEPARIN 5,000 UNIT VIAL SQ SCH ×3 (00:03→23:00)
[2021-01-29] MEDS: INSULIN HUMULIN R 100 UNIT/ML 3ML SQ SCH ×4 (00:05→17:31)
[2021-01-29] MEDS: METOCLOPRAMIDE 10 MG/2 ML VIAL IVP SCH ×3 (00:14→11:29)
[2021-01-29] MEDS: DEXMEDETOMIDINE 400MCG/NS100ML IV SCH ×4 (01:10→15:47)
[2021-01-29] MEDS: IPRATROPIUM/ALBUTEROL SULFATE 3 ML SOLUTION IH SCH ×6 (02:36→22:58)
[2021-01-29] MEDS: ZOSYN 3.375GM +NS 50ML IV SCH ×2 (04:31→16:08)
[2021-01-29] MEDS: SOLU-MEDROL 40MG VIAL IVP SCH ×2 (05:29→17:30)
[2021-01-29] MEDS: INSULIN GLARGINE 100 UNITS/ML 10 ML VIAL SQ SCH ×2 (05:52→21:24)
[2021-01-29 05:57] LABS: BASOPHILS % (AUTO) 0.3 % (0.0-5.0); HEMATOCRIT 32.6 % (36-48); LYMPHOCYTES % (AUTO) 6.6 % (21.0-51.0); MEAN CORPUSCULAR HEMOGLOBIN 28.6 pg (27.0-33.0); MEAN CORPUSCULAR VOLUME 92.4 fL (79-99); NEUTROPHILS % (AUTO) 85.2 % (40.0-77.0); PLATELET COUNT (AUTO) 259 K/uL (130-400); RED BLOOD CELL COUNT(AUTO) 3.53 MIL/uL (4.00-5.50); RED CELL DISTRIBUTION WIDTH 14.6 % (11.0-15.5); WHITE BLOOD COUNT (AUTO) 9.8 K/uL (4.8-10.8)
[2021-01-29 06:14] LABS: INR 1.24 (0.85-1.15); PROTHROMBIN TIME 13.3 SEC (9.6-11.6)
[2021-01-29 06:16] LABS: CREATININE 5.7 mg/dL (0.5-1.5); MAGNESIUM 2.5 mg/dL (1.80-2.40); PARTIAL THROMBOPLASTIN TIME 26.3 SEC (26.3-35.5); PHOSPHORUS 6.7 mg/dL (2.5-4.9)
[2021-01-29] MEDS: BUDESONIDE 0.5 MG/2 ML INH IH SCH ×2 (06:54→19:40)
[2021-01-29 07:14] LABS: ABG BASE EXCESS -5.5 mmol/L (-2.0-3.0); ABG HCO3 19.7 mmol/L (21.0-28.0); ABG OXYGEN SATURATION 90.3 % (95.0-99.0); ABG PCO2 37 mmHg (32-45)
[2021-01-29] MEDS: NICOTINE 14 MG/ 24 HR PATCH TD SCH (08:34)
[2021-01-29] MEDS: FAMOTIDINE 20MG VIAL IV SCH (08:34)
[2021-01-29] MEDS: BALSAM PERU/CASTOR OIL 60 GM TUBE TP SCH ×3 (09:00→21:24)
[2021-01-29] MEDS ORDERED: PHARMACY COMMUNICATION MISC SCH (09:00)
[2021-01-29] MEDS ORDERED: 0.9%NACL 1000ML 2,000 ML IV ONE (09:08)
[2021-01-29] MEDS ORDERED: 0.9%NACL 1000ML 1,000 ML IV ONE (17:44)
[2021-01-29] MEDS: ZIPRASIDONE MESYLATE 20 MG/VIAL IM PRN (18:30)
[2021-01-29] MEDS: HEPARIN 5,000 UNIT VIAL IV SCH (20:32)
[2021-01-29] MEDS ORDERED: AZITHROMYCIN 500MG+NS 250ML 250 ML IV ONE (22:29)
[2021-01-29] MEDS: 0.9% NACL 250ML IVPB SCH (22:30)
[2021-01-30] VITALS (46 sets, daily range): BP systolic 84–146; BP diastolic 42–101
[2021-01-30] MEDS: IPRATROPIUM/ALBUTEROL SULFATE 3 ML SOLUTION IH SCH ×6 (02:26→21:57)
[2021-01-30] MEDS: ZOSYN 3.375GM +NS 50ML IV SCH ×2 (05:04→17:50)
[2021-01-30 05:22] LABS: HEMATOCRIT 31.7 % (36-48); MEAN CORPUSCULAR HEMOGLOBIN 28.4 pg (27.0-33.0); MEAN CORPUSCULAR HGB CONC 31.2 g/dL (32.0-36.0); MEAN CORPUSCULAR VOLUME 90.8 fL (79-99); RED BLOOD CELL COUNT(AUTO) 3.49 MIL/uL (4.00-5.50); RED CELL DISTRIBUTION WIDTH 14.1 % (11.0-15.5); WHITE BLOOD COUNT (AUTO) 11.5 K/uL (4.8-10.8)
[2021-01-30 05:42] LABS: CREATININE 4.4 mg/dL (0.5-1.5); MAGNESIUM 2.1 mg/dL (1.80-2.40); PHOSPHORUS 5.8 mg/dL (2.5-4.9); POTASSIUM 3.7 mmol/L (3.5-5.1)
[2021-01-30] MEDS: SOLU-MEDROL 40MG VIAL IVP SCH ×2 (06:01→17:50)
[2021-01-30] MEDS: CHLORHEXIDINE GLUCONATE 473 ML MOUTHWASH MM SCH ×4 (06:01→17:55)
[2021-01-30] MEDS: DILTIAZEM 60MG TAB JT SCH ×5 (06:01→22:57)
[2021-01-30] MEDS: INSULIN GLARGINE 100 UNITS/ML 10 ML VIAL SQ SCH ×2 (06:10→21:14)
[2021-01-30] MEDS: INSULIN HUMULIN R 100 UNIT/ML 3ML SQ SCH ×5 (06:12→22:56)
[2021-01-30] MEDS: BUDESONIDE 0.5 MG/2 ML INH IH SCH ×2 (06:44→18:37)
[2021-01-30] MEDS: FAMOTIDINE 20MG VIAL IV SCH (10:24)
[2021-01-30] MEDS: NICOTINE 14 MG/ 24 HR PATCH TD SCH (10:24)
[2021-01-30] MEDS: BALSAM PERU/CASTOR OIL 60 GM TUBE TP SCH ×3 (10:24→21:13)
[2021-01-30] MEDS: METOCLOPRAMIDE 10 MG/2 ML VIAL IVP SCH ×3 (12:00→22:55)
[2021-01-30] MEDS: HEPARIN 5,000 UNIT VIAL SQ SCH ×2 (12:34→22:04)
[2021-01-30] MEDS: DEXMEDETOMIDINE 400MCG/NS100ML IV SCH ×2 (12:50→21:12)
[2021-01-30] MEDS: 0.9% NACL 250ML 250 ML IV SCH (15:09)
[2021-01-30] MEDS: VANCOMYCIN 750MG VIAL IVPB SCH (15:09)
[2021-01-30] MEDS ORDERED: 0.9%NACL 50ML 50 ML IV ONE (17:48)
[2021-01-30] MEDS: 0.9% NACL 250ML IVPB SCH (22:00)
[2021-01-31] VITALS (49 sets, daily range): BP systolic 75–171; BP diastolic 47–116
[2021-01-31] MEDS: CHLORHEXIDINE GLUCONATE 473 ML MOUTHWASH MM SCH ×4 (00:21→18:26)
[2021-01-31] MEDS: IPRATROPIUM/ALBUTEROL SULFATE 3 ML SOLUTION IH SCH ×6 (01:03→21:57)
[2021-01-31 03:48] LABS: HEMATOCRIT 34.6 % (36-48); MEAN CORPUSCULAR HEMOGLOBIN 28.4 pg (27.0-33.0); MEAN CORPUSCULAR HGB CONC 31.2 g/dL (32.0-36.0); MEAN CORPUSCULAR VOLUME 91.1 fL (79-99); PLATELET COUNT (AUTO) 225 K/uL (130-400); RED CELL DISTRIBUTION WIDTH 14.1 % (11.0-15.5); WHITE BLOOD COUNT (AUTO) 11.6 K/uL (4.8-10.8)
[2021-01-31 03:58] LABS: ALBUMIN 2.9 g/dL (3.5-5.0); BILIRUBIN,TOTAL 0.4 mg/dL (0.2-1.0); CREATININE 4.5 mg/dL (0.5-1.5); INR 1.24 (0.85-1.15); POTASSIUM 3.7 mmol/L (3.5-5.1); PROTHROMBIN TIME 13.3 SEC (9.6-11.6); TOTAL PROTEIN, SERUM 7.1 g/dL (6.0-8.3)
[2021-01-31 03:59] LABS: PARTIAL THROMBOPLASTIN TIME 28.8 SEC (26.3-35.5)
[2021-01-31 04:53] LABS: LYMPHOCYTES % (MANUAL) 10 % (22-44); MAN.DIFF COMMENT-IMPRESSION MANUAL DIFFERENTIAL; MONOCYTES % (MANUAL) 6 % (2-9); SEGMENTED NEUTROPHILS % 84 % (40-70)
[2021-01-31] MEDS ORDERED: 0.9%NACL 50ML 50 ML IV ONE ×2 (05:03→17:01)
[2021-01-31] MEDS: ZOSYN 3.375GM +NS 50ML IV SCH ×2 (05:08→17:00)
[2021-01-31] MEDS: SOLU-MEDROL 40MG VIAL IVP SCH ×2 (05:08→18:00)
[2021-01-31] MEDS: METOCLOPRAMIDE 10 MG/2 ML VIAL IVP SCH ×2 (05:08→12:35)
[2021-01-31] MEDS: INSULIN HUMULIN R 100 UNIT/ML 3ML SQ SCH ×3 (05:40→18:00)
[2021-01-31] MEDS: BUDESONIDE 0.5 MG/2 ML INH IH SCH ×2 (06:00→19:05)
[2021-01-31] MEDS: INSULIN GLARGINE 100 UNITS/ML 10 ML VIAL SQ SCH ×2 (07:30→21:00)
[2021-01-31 08:29] LABS: ABG BASE EXCESS -5.7 mmol/L (-2.0-3.0); ABG HCO3 18.8 mmol/L (21.0-28.0); ABG OXYGEN SATURATION 98.8 % (95.0-99.0); ABG PCO2 34 mmHg (32-45)
[2021-01-31] MEDS: AMIODARONE 200 MG TABLET PO SCH ×2 (09:00→21:29)
[2021-01-31] MEDS: FAMOTIDINE 20MG VIAL IV SCH (09:09)
[2021-01-31] MEDS: NICOTINE 14 MG/ 24 HR PATCH TD SCH (09:10)
[2021-01-31] MEDS: BALSAM PERU/CASTOR OIL 60 GM TUBE TP SCH ×3 (09:10→21:19)
[2021-01-31] MEDS ORDERED: LIDOCAINE HCL 1% MDV 50ML VIAL ONE (09:30)
[2021-01-31] MEDS ORDERED: IODIXANOL 320 MG/ML 100 ML VIAL ONE (09:42)
[2021-01-31] MEDS ORDERED: HEPARIN 1,000 UNIT VIAL ONE (10:10)
[2021-01-31] MEDS: HEPARIN 5,000 UNIT VIAL SQ SCH ×2 (11:00→21:56)
[2021-01-31] MEDS ORDERED: VERAPAMIL HCL 80 MG TABLET PO SCH (12:00)
[2021-01-31] MEDS: DEXMEDETOMIDINE 400MCG/NS100ML IV SCH (12:35)
[2021-01-31] MEDS: NOREPINEPHRIN 4MG/NS 250ML 250 ML IV SCH ×2 (15:00→21:51)
[2021-01-31] MEDS: 0.9% NACL 250ML IVPB SCH (22:00)
[2021-02-01] VITALS (46 sets, daily range): BP systolic 87–156; BP diastolic 50–103
[2021-02-01] MEDS: CHLORHEXIDINE GLUCONATE 473 ML MOUTHWASH MM SCH ×4 (00:33→18:43)
[2021-02-01] MEDS: INSULIN HUMULIN R 100 UNIT/ML 3ML SQ SCH ×4 (00:38→18:39)
[2021-02-01] MEDS: IPRATROPIUM/ALBUTEROL SULFATE 3 ML SOLUTION IH SCH ×3 (01:00→09:50)
[2021-02-01 04:00] LABS: HEMATOCRIT 36.1 % (36-48); MEAN CORPUSCULAR HEMOGLOBIN 28.7 pg (27.0-33.0); MEAN CORPUSCULAR HGB CONC 31.3 g/dL (32.0-36.0); MEAN CORPUSCULAR VOLUME 91.6 fL (79-99); PLATELET COUNT (AUTO) 297 K/uL (130-400); RED BLOOD CELL COUNT(AUTO) 3.94 MIL/uL (4.00-5.50); RED CELL DISTRIBUTION WIDTH 14.3 % (11.0-15.5); WHITE BLOOD COUNT (AUTO) 18.1 K/uL (4.8-10.8)
[2021-02-01 04:22] LABS: CREATININE 4.5 mg/dL (0.5-1.5); POTASSIUM 3.3 mmol/L (3.5-5.1)
[2021-02-01 04:37] LABS: BAND NEUTROPHILS % (MANUAL) 1 % (0-2); EOSINOPHILS % (MANUAL) 1 % (1-6); LYMPHOCYTES % (MANUAL) 10 % (22-44); MAN.DIFF COMMENT-IMPRESSION MANUAL DIFFERENTIAL; MONOCYTES % (MANUAL) 8 % (2-9); SEGMENTED NEUTROPHILS % 80 % (40-70)
[2021-02-01 04:39] LABS: PLATELET MORPHOLOGY COMMENT ADEQUATE
[2021-02-01] MEDS: ZOSYN 3.375GM +NS 50ML IV SCH (05:35)
[2021-02-01] MEDS: SOLU-MEDROL 40MG VIAL IVP SCH (05:35)
[2021-02-01] MEDS: BUDESONIDE 0.5 MG/2 ML INH IH SCH ×2 (06:50→19:38)
[2021-02-01] MEDS: NICOTINE 14 MG/ 24 HR PATCH TD SCH (08:12)
[2021-02-01] MEDS: AMIODARONE 200 MG TABLET PO SCH ×2 (08:13→21:26)
[2021-02-01] MEDS: FAMOTIDINE 20MG VIAL IV SCH (08:13)
[2021-02-01] MEDS: BALSAM PERU/CASTOR OIL 60 GM TUBE TP SCH ×3 (08:15→21:26)
[2021-02-01] MEDS: INSULIN GLARGINE 100 UNITS/ML 10 ML VIAL SQ SCH ×2 (08:15→21:26)
[2021-02-01] MEDS: HEPARIN 5,000 UNIT VIAL SQ SCH (11:44)
[2021-02-01] MEDS: 0.9% NACL 250ML 250 ML IV SCH (14:47)
[2021-02-01] MEDS: VANCOMYCIN 750MG VIAL IVPB SCH (14:47)
[2021-02-01] MEDS: OLANZAPINE 5 MG TAB PO SCH (15:05)
[2021-02-01] MEDS: IPRATROPIUM 0.5 MG/2.5 ML INH IH SCH (19:38)
[2021-02-01] MEDS: 0.9% NACL 250ML IVPB SCH (22:00)
[2021-02-01] MEDS ORDERED: ASPIRIN 325MG TAB PO STA (23:49)
[2021-02-02] VITALS (37 sets, daily range): BP systolic 82–144; BP diastolic 46–79
[2021-02-02] MEDS: IPRATROPIUM 0.5 MG/2.5 ML INH IH SCH ×4 (01:07→19:06)
[2021-02-02] MEDS: CHLORHEXIDINE GLUCONATE 473 ML MOUTHWASH MM SCH ×4 (01:14→18:31)
[2021-02-02] MEDS: HEPARIN 5,000 UNIT VIAL SQ SCH ×3 (01:38→21:52)
[2021-02-02] MEDS ORDERED: ASPIRIN 325MG TAB ONE (02:15)
[2021-02-02 06:08] LABS: HEMATOCRIT 33.4 % (36-48); MEAN CORPUSCULAR HEMOGLOBIN 28.5 pg (27.0-33.0); MEAN CORPUSCULAR HGB CONC 31.7 g/dL (32.0-36.0); MEAN CORPUSCULAR VOLUME 89.8 fL (79-99); RED BLOOD CELL COUNT(AUTO) 3.72 MIL/uL (4.00-5.50); RED CELL DISTRIBUTION WIDTH 14.4 % (11.0-15.5); WHITE BLOOD COUNT (AUTO) 19.3 K/uL (4.8-10.8)
[2021-02-02 06:18] LABS: INR 1.33 (0.85-1.15); PROTHROMBIN TIME 14.1 SEC (9.6-11.6)
[2021-02-02 06:19] LABS: PARTIAL THROMBOPLASTIN TIME 27.9 SEC (26.3-35.5)
[2021-02-02 06:30] LABS: ALBUMIN 2.7 g/dL (3.5-5.0); BILIRUBIN,TOTAL 0.4 mg/dL (0.2-1.0); CREATININE 7.5 mg/dL (0.5-1.5); MAGNESIUM 2.5 mg/dL (1.80-2.40); POTASSIUM 3.4 mmol/L (3.5-5.1); THYROID STIMULATING HORMONE 0.77 uIU/mL (0.36-3.74); TOTAL PROTEIN, SERUM 6.9 g/dL (6.0-8.3)
[2021-02-02] MEDS: BUDESONIDE 0.5 MG/2 ML INH IH SCH ×2 (06:47→19:06)
[2021-02-02] MEDS: INSULIN GLARGINE 100 UNITS/ML 10 ML VIAL SQ SCH ×2 (07:33→21:49)
[2021-02-02] MEDS: INSULIN HUMULIN R 100 UNIT/ML 3ML SQ SCH ×4 (07:34→18:00)
[2021-02-02] MEDS: FAMOTIDINE 20MG VIAL IV SCH (10:01)
[2021-02-02] MEDS: NICOTINE 14 MG/ 24 HR PATCH TD SCH (10:03)
[2021-02-02] MEDS: OLANZAPINE 5 MG TAB PO SCH (10:03)
[2021-02-02] MEDS: AMIODARONE 200 MG TABLET PO SCH ×2 (10:03→21:48)
[2021-02-02] MEDS: BALSAM PERU/CASTOR OIL 60 GM TUBE TP SCH ×3 (10:05→21:00)
[2021-02-02] MEDS ORDERED: ALBUMIN (HUMAN) 25% 100 ML IV ONE (20:19)
[2021-02-02] MEDS ORDERED: PHARMACY COMMUNICATION MISC SCH (20:30)
[2021-02-02] MEDS ORDERED: ALBUMIN (HUMAN) 25% 100 ML IV PRN (20:30)
[2021-02-02] MEDS ORDERED: ATORVASTATIN 40 MG TABLET PO ONE (21:00)
[2021-02-02] MEDS: 0.9% NACL 250ML IVPB SCH (21:35)
[2021-02-02] MEDS ORDERED: ZOLPIDEM TARTRATE 5 MG TAB PO ONE (23:30)
[2021-02-03] VITALS (9 sets, daily range): BP systolic 92–137; BP diastolic 52–79
[2021-02-03] MEDS: IPRATROPIUM 0.5 MG/2.5 ML INH IH SCH ×4 (00:32→18:58)
[2021-02-03 04:33] LABS: HEMATOCRIT 31.9 % (36-48); MEAN CORPUSCULAR HEMOGLOBIN 29.2 pg (27.0-33.0); MEAN CORPUSCULAR HGB CONC 32.9 g/dL (32.0-36.0); MEAN CORPUSCULAR VOLUME 88.6 fL (79-99); RED BLOOD CELL COUNT(AUTO) 3.6 MIL/uL (4.00-5.50); RED CELL DISTRIBUTION WIDTH 14.3 % (11.0-15.5); WHITE BLOOD COUNT (AUTO) 17.9 K/uL (4.8-10.8)
[2021-02-03 04:38] LABS: INR 1.93 (0.85-1.15); PROTHROMBIN TIME 19.8 SEC (9.6-11.6)
[2021-02-03 04:55] LABS: ALBUMIN 3.5 g/dL (3.5-5.0); BILIRUBIN,TOTAL 0.5 mg/dL (0.2-1.0); CREATININE 5.8 mg/dL (0.5-1.5); TOTAL PROTEIN, SERUM 7.9 g/dL (6.0-8.3)
[2021-02-03 05:02] LABS: POTASSIUM 2.9 mmol/L (3.5-5.1)
[2021-02-03] MEDS: CHLORHEXIDINE GLUCONATE 473 ML MOUTHWASH MM SCH ×5 (06:00→23:09)
[2021-02-03] MEDS: INSULIN HUMULIN R 100 UNIT/ML 3ML SQ SCH ×5 (06:00→23:09)
[2021-02-03] MEDS: BUDESONIDE 0.5 MG/2 ML INH IH SCH ×2 (06:31→18:58)
[2021-02-03] MEDS: INSULIN GLARGINE 100 UNITS/ML 10 ML VIAL SQ SCH ×2 (07:30→21:43)
[2021-02-03] MEDS: NICOTINE 14 MG/ 24 HR PATCH TD SCH (08:25)
[2021-02-03] MEDS: OLANZAPINE 5 MG TAB PO SCH (08:25)
[2021-02-03] MEDS: FAMOTIDINE 20MG VIAL IV SCH (08:25)
[2021-02-03] MEDS: AMIODARONE 200 MG TABLET PO SCH ×2 (08:25→21:35)
[2021-02-03] MEDS: BALSAM PERU/CASTOR OIL 60 GM TUBE TP SCH ×3 (08:26→21:43)
[2021-02-03] MEDS: HEPARIN 5,000 UNIT VIAL SQ SCH ×2 (08:27→21:40)
[2021-02-03] MEDS ORDERED: KCL 20 MEQ ERTAB PO ONE ×2 (14:51→15:00)
[2021-02-03] MEDS: 0.9% NACL 250ML 250 ML IV SCH (14:55)
[2021-02-03] MEDS: VANCOMYCIN 750MG VIAL IVPB SCH (14:55)
[2021-02-03] MEDS ORDERED: AZITHROMYCIN 500MG+NS 250ML 250 ML IV ONE (21:31)
[2021-02-03] MEDS: ASPIRIN 325MG TAB PO SCH (21:35)
[2021-02-03] MEDS: 0.9% NACL 250ML IVPB SCH (21:43)
[2021-02-04] VITALS: BP 128/71
[2021-02-04] MEDS: IPRATROPIUM 0.5 MG/2.5 ML INH IH SCH ×5 (00:31→23:34)
[2021-02-04 03:13] VITALS: BP 123/56
[2021-02-04] MEDS: CHLORHEXIDINE GLUCONATE 473 ML MOUTHWASH MM SCH ×3 (05:37→17:12)
[2021-02-04] MEDS: INSULIN HUMULIN R 100 UNIT/ML 3ML SQ SCH ×3 (05:37→17:12)
[2021-02-04] MEDS: BUDESONIDE 0.5 MG/2 ML INH IH SCH ×2 (06:53→18:55)
[2021-02-04] MEDS: INSULIN GLARGINE 100 UNITS/ML 10 ML VIAL SQ SCH ×2 (07:30→21:24)
[2021-02-04 08:00] VITALS: BP 131/77
[2021-02-04] MEDS: NICOTINE 14 MG/ 24 HR PATCH TD SCH (08:48)
[2021-02-04] MEDS: FAMOTIDINE 20MG VIAL IV SCH (08:49)
[2021-02-04] MEDS: AMIODARONE 200 MG TABLET PO SCH ×2 (08:50→21:11)
[2021-02-04] MEDS: OLANZAPINE 5 MG TAB PO SCH (08:50)
[2021-02-04] MEDS: BALSAM PERU/CASTOR OIL 60 GM TUBE TP SCH ×3 (08:50→21:12)
[2021-02-04] MEDS: HEPARIN 5,000 UNIT VIAL SQ SCH ×2 (09:08→21:22)
[2021-02-04 12:00] VITALS: BP 130/88
[2021-02-04] MEDS ORDERED: ZOSYN 3.375GM +NS 50ML IV SCH (14:00)
[2021-02-04] MEDS: ZOSYN 3.375GM+NS 50ML 50 ML IV SCH (15:11)
[2021-02-04 16:00] VITALS: BP 123/67
[2021-02-04] MEDS: 0.9% NACL 250ML IVPB SCH (19:27)
[2021-02-04 20:00] VITALS: BP 133/72
[2021-02-04] MEDS: ASPIRIN 325MG TAB PO SCH (21:12)
[2021-02-05] VITALS (21 sets, daily range): BP systolic 94–149; BP diastolic 52–76
[2021-02-05] MEDS ORDERED: 0.9%NACL 50ML 50 ML IV ONE (03:19)
[2021-02-05] MEDS: ZOSYN 3.375GM+NS 50ML 50 ML IV SCH ×2 (03:24→14:35)
[2021-02-05 03:55] LABS: BASOPHILS % (AUTO) 0.7 % (0.0-5.0); EOSINOPHILS % (AUTO) 2.6 % (0.0-8.0); HEMATOCRIT 33.4 % (36-48); LYMPHOCYTES % (AUTO) 11.6 % (21.0-51.0); MEAN CORPUSCULAR HEMOGLOBIN 28.4 pg (27.0-33.0); MEAN CORPUSCULAR HGB CONC 31.7 g/dL (32.0-36.0); MEAN CORPUSCULAR VOLUME 89.5 fL (79-99); NEUTROPHILS % (AUTO) 75.5 % (40.0-77.0); PLATELET COUNT (AUTO) 271 K/uL (130-400); RED BLOOD CELL COUNT(AUTO) 3.73 MIL/uL (4.00-5.50); RED CELL DISTRIBUTION WIDTH 14.6 % (11.0-15.5); WHITE BLOOD COUNT (AUTO) 12.5 K/uL (4.8-10.8)
[2021-02-05 04:13] LABS: ALBUMIN 3.2 g/dL (3.5-5.0); BILIRUBIN,TOTAL 0.4 mg/dL (0.2-1.0); MAGNESIUM 2.5 mg/dL (1.80-2.40); POTASSIUM 3.4 mmol/L (3.5-5.1); TOTAL PROTEIN, SERUM 7.5 g/dL (6.0-8.3)
[2021-02-05 04:20] LABS: CREATININE 10.2 mg/dL (0.5-1.5)
[2021-02-05] MEDS: CHLORHEXIDINE GLUCONATE 473 ML MOUTHWASH MM SCH ×4 (06:00→17:41)
[2021-02-05] MEDS: INSULIN HUMULIN R 100 UNIT/ML 3ML SQ SCH ×4 (06:00→17:55)
[2021-02-05] MEDS: BUDESONIDE 0.5 MG/2 ML INH IH SCH ×2 (06:55→18:28)
[2021-02-05] MEDS: IPRATROPIUM 0.5 MG/2.5 ML INH IH SCH ×4 (06:55→23:26)
[2021-02-05] MEDS: INSULIN GLARGINE 100 UNITS/ML 10 ML VIAL SQ SCH ×2 (09:12→21:59)
[2021-02-05] MEDS: OLANZAPINE 5 MG TAB PO SCH (09:12)
[2021-02-05] MEDS: FAMOTIDINE 20MG VIAL IV SCH (09:13)
[2021-02-05] MEDS: NICOTINE 14 MG/ 24 HR PATCH TD SCH (09:13)
[2021-02-05] MEDS: AMIODARONE 200 MG TABLET PO SCH ×2 (09:13→22:00)
[2021-02-05] MEDS: BALSAM PERU/CASTOR OIL 60 GM TUBE TP SCH ×3 (09:15→22:02)
[2021-02-05] MEDS: HEPARIN 5,000 UNIT VIAL SQ SCH ×2 (09:23→21:59)
[2021-02-05] MEDS: ASPIRIN 325MG TAB PO SCH (22:00)
[2021-02-05] MEDS: 0.9% NACL 250ML IVPB SCH (22:00)
[2021-02-06] VITALS: BP 111/67
[2021-02-06] MEDS: ZOSYN 3.375GM+NS 50ML 50 ML IV SCH ×2 (02:27→14:18)
[2021-02-06 03:55] LABS: BASOPHILS % (AUTO) 1.1 % (0.0-5.0); EOSINOPHILS % (AUTO) 3.1 % (0.0-8.0); MEAN CORPUSCULAR HEMOGLOBIN 28.8 pg (27.0-33.0); MEAN CORPUSCULAR HGB CONC 31.5 g/dL (32.0-36.0); MEAN CORPUSCULAR VOLUME 91.6 fL (79-99); MONOCYTES % (AUTO) 7.5 % (3.0-13.0); NEUTROPHILS % (AUTO) 72.7 % (40.0-77.0); PLATELET COUNT (AUTO) 262 K/uL (130-400); RED BLOOD CELL COUNT(AUTO) 3.71 MIL/uL (4.00-5.50); RED CELL DISTRIBUTION WIDTH 14.6 % (11.0-15.5); WHITE BLOOD COUNT (AUTO) 11.8 K/uL (4.8-10.8)
[2021-02-06 04:03] LABS: INR 1.27 (0.85-1.15); PROTHROMBIN TIME 13.5 SEC (9.6-11.6)
[2021-02-06 04:14] LABS: ALBUMIN 3.2 g/dL (3.5-5.0); BILIRUBIN,TOTAL 0.4 mg/dL (0.2-1.0); PHOSPHORUS 8.3 mg/dL (2.5-4.9); POTASSIUM 3.4 mmol/L (3.5-5.1); TOTAL PROTEIN, SERUM 7.8 g/dL (6.0-8.3)
[2021-02-06 04:16] VITALS: BP 141/64
[2021-02-06 04:17] LABS: CREATININE 9.4 mg/dL (0.5-1.5)
[2021-02-06] MEDS: IPRATROPIUM 0.5 MG/2.5 ML INH IH SCH ×3 (06:19→18:53)
[2021-02-06] MEDS: BUDESONIDE 0.5 MG/2 ML INH IH SCH ×2 (06:19→18:53)
[2021-02-06] MEDS: CHLORHEXIDINE GLUCONATE 473 ML MOUTHWASH MM SCH ×4 (06:32→18:01)
[2021-02-06] MEDS: INSULIN GLARGINE 100 UNITS/ML 10 ML VIAL SQ SCH ×2 (06:33→20:53)
[2021-02-06] MEDS: INSULIN HUMULIN R 100 UNIT/ML 3ML SQ SCH ×4 (06:34→18:02)
[2021-02-06 07:30] VITALS: BP 120/74
[2021-02-06] MEDS: OLANZAPINE 5 MG TAB PO SCH (09:47)
[2021-02-06] MEDS: FAMOTIDINE 20MG VIAL IV SCH (09:47)
[2021-02-06] MEDS: BALSAM PERU/CASTOR OIL 60 GM TUBE TP SCH ×3 (09:47→20:54)
[2021-02-06] MEDS: NICOTINE 14 MG/ 24 HR PATCH TD SCH (09:47)
[2021-02-06] MEDS: AMIODARONE 200 MG TABLET PO SCH ×2 (09:47→20:51)
[2021-02-06] MEDS: HEPARIN 5,000 UNIT VIAL SQ SCH ×2 (09:48→20:50)
[2021-02-06 13:29] VITALS: BP 121/69
[2021-02-06 15:30] VITALS: BP 113/67
[2021-02-06] MEDS: ACETAMINOPHEN 650 MG/20.3 ML UDCUP PEG PRN (16:45)
[2021-02-06 20:00] VITALS: BP 148/79
[2021-02-06] MEDS: ASPIRIN 325MG TAB PO SCH (20:50)
[2021-02-06] MEDS: 0.9% NACL 250ML IVPB SCH (22:00)
[2021-02-07] VITALS (32 sets, daily range): BP systolic 72–160; BP diastolic 40–76
[2021-02-07] MEDS: CHLORHEXIDINE GLUCONATE 473 ML MOUTHWASH MM SCH ×3 (00:01→12:00)
[2021-02-07] MEDS: INSULIN HUMULIN R 100 UNIT/ML 3ML SQ SCH ×4 (00:02→18:28)
[2021-02-07] MEDS: IPRATROPIUM 0.5 MG/2.5 ML INH IH SCH ×4 (00:28→18:28)
[2021-02-07] MEDS: ZOSYN 3.375GM+NS 50ML 50 ML IV SCH ×2 (02:05→13:55)
[2021-02-07 03:48] LABS: BASOPHILS % (AUTO) 0.9 % (0.0-5.0); EOSINOPHILS % (AUTO) 3.6 % (0.0-8.0); HEMATOCRIT 35.8 % (36-48); MEAN CORPUSCULAR HEMOGLOBIN 28.5 pg (27.0-33.0); MEAN CORPUSCULAR HGB CONC 31.6 g/dL (32.0-36.0); MEAN CORPUSCULAR VOLUME 90.4 fL (79-99); MONOCYTES % (AUTO) 6.5 % (3.0-13.0); NEUTROPHILS % (AUTO) 74.4 % (40.0-77.0); PLATELET COUNT (AUTO) 279 K/uL (130-400); RED BLOOD CELL COUNT(AUTO) 3.96 MIL/uL (4.00-5.50); RED CELL DISTRIBUTION WIDTH 14.7 % (11.0-15.5); WHITE BLOOD COUNT (AUTO) 11.7 K/uL (4.8-10.8)
[2021-02-07 04:17] LABS: MAGNESIUM 2.6 mg/dL (1.80-2.40); PHOSPHORUS 8.9 mg/dL (2.5-4.9); POTASSIUM 3.1 mmol/L (3.5-5.1)
[2021-02-07 04:28] LABS: CREATININE 11.4 mg/dL (0.5-1.5)
[2021-02-07] MEDS: INSULIN GLARGINE 100 UNITS/ML 10 ML VIAL SQ SCH ×2 (06:44→22:20)
[2021-02-07] MEDS: BUDESONIDE 0.5 MG/2 ML INH IH SCH ×2 (06:52→18:28)
[2021-02-07] MEDS ORDERED: LIDOCAINE HCL 1% 20 ML VIAL ONE (07:21)
[2021-02-07] MEDS ORDERED: PHENYLEPHRINE HCL 10 MG/ML 1ML VIAL IV ONE (07:21)
[2021-02-07] MEDS ORDERED: EPINEPHRINE PF 1MG AMP ONE (07:21)
[2021-02-07] MEDS ORDERED: PROPOFOL 10 MG/ML 20ML VIAL IV ONE (07:21)
[2021-02-07] MEDS: OLANZAPINE 5 MG TAB PO SCH (09:20)
[2021-02-07] MEDS: HEPARIN 5,000 UNIT VIAL SQ SCH ×2 (09:22→22:18)
[2021-02-07] MEDS: NICOTINE 14 MG/ 24 HR PATCH TD SCH (09:22)
[2021-02-07] MEDS: FAMOTIDINE 20MG VIAL IV SCH (09:22)
[2021-02-07] MEDS: BALSAM PERU/CASTOR OIL 60 GM TUBE TP SCH ×3 (09:23→22:20)
[2021-02-07] MEDS: ACETAMINOPHEN 650 MG/20.3 ML UDCUP PEG PRN (11:35)
[2021-02-07] MEDS: HEPARIN 5,000 UNIT VIAL IV SCH (19:49)
[2021-02-07] MEDS: ASPIRIN 325MG TAB PO SCH (21:00)
[2021-02-07] MEDS: 0.9% NACL 250ML IVPB SCH (22:00)
[2021-02-08] MEDS: IPRATROPIUM 0.5 MG/2.5 ML INH IH SCH ×4 (00:43→18:32)
[2021-02-08 01:15] VITALS: BP 93/47
[2021-02-08] MEDS ORDERED: MORPHINE 2 MG SYG ONE (01:27)
[2021-02-08] MEDS ORDERED: MORPHINE 2 MG SYG IM SCH (01:40)
[2021-02-08] MEDS: ZOSYN 3.375GM+NS 50ML 50 ML IV SCH ×3 (02:00→20:44)
[2021-02-08 04:21] VITALS: BP_SYST 160; BP_SYST 87; BP_DIAS 53; BP_DIAS 75
[2021-02-08 05:02] LABS: BASOPHILS % (AUTO) 0.8 % (0.0-5.0); EOSINOPHILS % (AUTO) 2.5 % (0.0-8.0); HEMATOCRIT 32.9 % (36-48); MEAN CORPUSCULAR HGB CONC 31.6 g/dL (32.0-36.0); MEAN CORPUSCULAR VOLUME 91.6 fL (79-99); MONOCYTES % (AUTO) 7.4 % (3.0-13.0); NEUTROPHILS % (AUTO) 72.8 % (40.0-77.0); PLATELET COUNT (AUTO) 208 K/uL (130-400); RED BLOOD CELL COUNT(AUTO) 3.59 MIL/uL (4.00-5.50); RED CELL DISTRIBUTION WIDTH 15.2 % (11.0-15.5); WHITE BLOOD COUNT (AUTO) 11.4 K/uL (4.8-10.8)
[2021-02-08 05:15] LABS: POTASSIUM 3.2 mmol/L (3.5-5.1)
[2021-02-08 05:35] LABS: CREATININE 8.3 mg/dL (0.5-1.5)
[2021-02-08] MEDS: CHLORHEXIDINE GLUCONATE 473 ML MOUTHWASH MM SCH ×3 (06:00→12:00)
[2021-02-08] MEDS: INSULIN HUMULIN R 100 UNIT/ML 3ML SQ SCH ×4 (06:00→17:14)
[2021-02-08] MEDS: BUDESONIDE 0.5 MG/2 ML INH IH SCH ×2 (06:30→18:32)
[2021-02-08] MEDS: INSULIN GLARGINE 100 UNITS/ML 10 ML VIAL SQ SCH ×2 (07:30→20:51)
[2021-02-08 08:00] VITALS: BP 102/50
[2021-02-08] MEDS: BALSAM PERU/CASTOR OIL 60 GM TUBE TP SCH ×3 (09:19→21:10)
[2021-02-08] MEDS: FAMOTIDINE 20MG VIAL IV SCH (09:19)
[2021-02-08] MEDS: OLANZAPINE 5 MG TAB PO SCH (09:19)
[2021-02-08] MEDS: AMIODARONE 200 MG TABLET PO SCH (09:19)
[2021-02-08] MEDS: NICOTINE 14 MG/ 24 HR PATCH TD SCH (09:19)
[2021-02-08] MEDS: HEPARIN 5,000 UNIT VIAL SQ SCH ×2 (09:49→20:45)
[2021-02-08] MEDS: ACETAMINOPHEN 650 MG/20.3 ML UDCUP PEG PRN ×2 (11:05→21:04)
[2021-02-08 12:00] VITALS: BP 104/55
[2021-02-08 16:25] VITALS: BP 119/65
[2021-02-08] MEDS ORDERED: MIDODRINE HCL 5 MG TABLET PO SCH (18:00)
[2021-02-08 20:00] VITALS: BP 103/59
[2021-02-08] MEDS: ASPIRIN 325MG TAB PO SCH (20:44)
[2021-02-08] MEDS: 0.9% NACL 250ML IVPB SCH (22:00)
[2021-02-09] VITALS (20 sets, daily range): BP systolic 89–135; BP diastolic 51–88
[2021-02-09] MEDS: INSULIN HUMULIN R 100 UNIT/ML 3ML SQ SCH ×4 (00:12→18:00)
[2021-02-09] MEDS: IPRATROPIUM 0.5 MG/2.5 ML INH IH SCH ×4 (00:25→18:19)
[2021-02-09 04:13] LABS: HEMATOCRIT 32.9 % (36-48); MEAN CORPUSCULAR HEMOGLOBIN 28.8 pg (27.0-33.0); MEAN CORPUSCULAR HGB CONC 31.9 g/dL (32.0-36.0); MEAN CORPUSCULAR VOLUME 90.4 fL (79-99); NUCLEATED RED BLOOD CELLS 0.2 % (0.0-0.19); RED BLOOD CELL COUNT(AUTO) 3.64 MIL/uL (4.00-5.50); RED CELL DISTRIBUTION WIDTH 15.2 % (11.0-15.5); WHITE BLOOD COUNT (AUTO) 11.2 K/uL (4.8-10.8)
[2021-02-09 04:23] LABS: MAGNESIUM 2.5 mg/dL (1.80-2.40); POTASSIUM 3.1 mmol/L (3.5-5.1)
[2021-02-09 04:36] LABS: CREATININE 10.2 mg/dL (0.5-1.5)
[2021-02-09] MEDS: BUDESONIDE 0.5 MG/2 ML INH IH SCH ×2 (06:28→18:19)
[2021-02-09] MEDS: INSULIN GLARGINE 100 UNITS/ML 10 ML VIAL SQ SCH ×2 (06:33→22:08)
[2021-02-09] MEDS: ZOSYN 3.375GM+NS 50ML 50 ML IV SCH ×2 (08:37→22:05)
[2021-02-09] MEDS: Vitamin B Complex/Vit C/Folic Acid GT SCH (08:38)
[2021-02-09] MEDS: ACETAMINOPHEN 650 MG/20.3 ML UDCUP PEG PRN (08:38)
[2021-02-09] MEDS: OLANZAPINE 5 MG TAB PO SCH (08:38)
[2021-02-09] MEDS: AMIODARONE 200 MG TABLET PO SCH (08:39)
[2021-02-09] MEDS: FAMOTIDINE 20MG VIAL IV SCH (08:39)
[2021-02-09] MEDS: HEPARIN 5,000 UNIT VIAL SQ SCH ×2 (08:39→22:09)
[2021-02-09] MEDS: BALSAM PERU/CASTOR OIL 60 GM TUBE TP SCH ×3 (08:40→22:06)
[2021-02-09] MEDS: NICOTINE 14 MG/ 24 HR PATCH TD SCH (08:41)
[2021-02-09] MEDS: 0.9% NACL 250ML IVPB SCH (22:00)
[2021-02-09] MEDS: ASPIRIN 325MG TAB PO SCH (22:06)
[2021-02-09] MEDS: MIDODRINE HCL 5 MG TABLET PO SCH (22:06)
[2021-02-09] MEDS: LACTOBACILLUS RHAMNOSUS GG 1 EACH CAP.SPRINK PO SCH (22:43)
[2021-02-10] VITALS: BP 114/60
[2021-02-10] MEDS: IPRATROPIUM 0.5 MG/2.5 ML INH IH SCH ×5 (00:07→23:50)
[2021-02-10 04:00] VITALS: BP 107/59
[2021-02-10 05:05] LABS: HEMATOCRIT 32.5 % (36-48); MEAN CORPUSCULAR HEMOGLOBIN 29.1 pg (27.0-33.0); MEAN CORPUSCULAR HGB CONC 31.7 g/dL (32.0-36.0); MEAN CORPUSCULAR VOLUME 91.8 fL (79-99); RED BLOOD CELL COUNT(AUTO) 3.54 MIL/uL (4.00-5.50); RED CELL DISTRIBUTION WIDTH 15.6 % (11.0-15.5); WHITE BLOOD COUNT (AUTO) 9.5 K/uL (4.8-10.8)
[2021-02-10 05:12] LABS: CREATININE 7.6 mg/dL (0.5-1.5)
[2021-02-10 05:18] LABS: POTASSIUM 2.9 mmol/L (3.5-5.1)
[2021-02-10] MEDS ORDERED: POTASSIUM CHLORIDE 10% ELIXIR 20 MEQ/15 ML UDCUP PO ONE ×2 (06:00→10:00)
[2021-02-10] MEDS: BUDESONIDE 0.5 MG/2 ML INH IH SCH ×2 (06:13→18:51)
[2021-02-10] MEDS: INSULIN HUMULIN R 100 UNIT/ML 3ML SQ SCH ×4 (06:57→17:32)
[2021-02-10] MEDS: INSULIN GLARGINE 100 UNITS/ML 10 ML VIAL SQ SCH ×2 (06:59→21:41)
[2021-02-10 08:53] VITALS: BP 123/55
[2021-02-10] MEDS: ZOSYN 3.375GM+NS 50ML 50 ML IV SCH ×2 (09:24→21:32)
[2021-02-10] MEDS: Vitamin B Complex/Vit C/Folic Acid GT SCH (09:27)
[2021-02-10] MEDS: AMIODARONE 200 MG TABLET PO SCH (09:27)
[2021-02-10] MEDS: OLANZAPINE 5 MG TAB PO SCH (09:28)
[2021-02-10] MEDS: NICOTINE 14 MG/ 24 HR PATCH TD SCH (09:28)
[2021-02-10] MEDS: MIDODRINE HCL 5 MG TABLET PO SCH ×3 (09:28→21:32)
[2021-02-10] MEDS: LACTOBACILLUS RHAMNOSUS GG 1 EACH CAP.SPRINK PO SCH ×3 (09:28→21:31)
[2021-02-10] MEDS: FAMOTIDINE 20MG VIAL IV SCH (09:28)
[2021-02-10] MEDS: HEPARIN 5,000 UNIT VIAL SQ SCH ×2 (09:29→21:41)
[2021-02-10] MEDS: BALSAM PERU/CASTOR OIL 60 GM TUBE TP SCH ×3 (09:32→21:36)
[2021-02-10 11:33] VITALS: BP 115/71
[2021-02-10 15:48] VITALS: BP 128/59
[2021-02-10 20:00] VITALS: BP 124/59
[2021-02-10] MEDS: ASPIRIN 325MG TAB PO SCH (21:32)
[2021-02-11] VITALS: BP 133/60
[2021-02-11 04:00] VITALS: BP 131/55
[2021-02-11 04:16] LABS: HEMATOCRIT 31.5 % (36-48); MEAN CORPUSCULAR HEMOGLOBIN 28.6 pg (27.0-33.0); MEAN CORPUSCULAR HGB CONC 30.8 g/dL (32.0-36.0); MEAN CORPUSCULAR VOLUME 92.9 fL (79-99); NUCLEATED RED BLOOD CELLS 0.2 % (0.0-0.19); PLATELET COUNT (AUTO) 202 K/uL (130-400); RED BLOOD CELL COUNT(AUTO) 3.39 MIL/uL (4.00-5.50); RED CELL DISTRIBUTION WIDTH 15.9 % (11.0-15.5); WHITE BLOOD COUNT (AUTO) 9.1 K/uL (4.8-10.8)
[2021-02-11 04:26] LABS: POTASSIUM 4.2 mmol/L (3.5-5.1)
[2021-02-11 04:28] LABS: CREATININE 9.1 mg/dL (0.5-1.5)
[2021-02-11] MEDS: IPRATROPIUM 0.5 MG/2.5 ML INH IH SCH ×2 (06:18→11:12)
[2021-02-11] MEDS: BUDESONIDE 0.5 MG/2 ML INH IH SCH (06:19)
[2021-02-11] MEDS: INSULIN GLARGINE 100 UNITS/ML 10 ML VIAL SQ SCH (06:33)
[2021-02-11] MEDS: INSULIN HUMULIN R 100 UNIT/ML 3ML SQ SCH ×3 (06:33→13:00)
[2021-02-11 08:20] VITALS: BP 127/53
[2021-02-11] MEDS: LACTOBACILLUS RHAMNOSUS GG 1 EACH CAP.SPRINK PO SCH (09:22)
[2021-02-11] MEDS: MIDODRINE HCL 5 MG TABLET PO SCH (09:22)
[2021-02-11] MEDS: FAMOTIDINE 20MG VIAL IV SCH (09:23)
[2021-02-11] MEDS: OLANZAPINE 5 MG TAB PO SCH (09:23)
[2021-02-11] MEDS: NICOTINE 14 MG/ 24 HR PATCH TD SCH (09:23)
[2021-02-11] MEDS: AMIODARONE 200 MG TABLET PO SCH (09:23)
[2021-02-11] MEDS: ZOSYN 3.375GM+NS 50ML 50 ML IV SCH (09:23)
[2021-02-11] MEDS: Vitamin B Complex/Vit C/Folic Acid GT SCH (09:23)
[2021-02-11] MEDS: HEPARIN 5,000 UNIT VIAL SQ SCH (09:26)
[2021-02-11] MEDS: BALSAM PERU/CASTOR OIL 60 GM TUBE TP SCH (09:58)
[2021-02-11 11:42] VITALS: BP 137/61
== END 2021-02-11 15:35 | DRG 870 ==
LOC: EDH 07:52 → EDHIP 10:05 → 2CH 20:14 → 4CH 01-25 16:37 → 4DH 01-25 19:17 → 2CH 01-27 14:00 → 2DH 01-30 03:42 → 4CH 02-07 19:11 → 4DH 02-08 17:09
PROVIDERS: ADMIT Internal Medicine Pulmonary Disease; ATTEND Internal Medicine Pulmonary Disease
PROC: 5A1955Z Respiratory Ventilation, Greater than 96 Consecutive Hours (ICD-10-PCS; 2021-01-15)
PROC: 5A09357 Assistance with Respiratory Ventilation, Less than 24 Consecutive Hours, Continuous Positive Airway Pressure (ICD-10-PCS; 2021-01-15)
PROC: 0BH17EZ Insertion of Endotracheal Airway into Trachea, Via Natural or Artificial Opening (ICD-10-PCS; 2021-01-15)
PROC: 02HV33Z Insertion of Infusion Device into Superior Vena Cava, Percutaneous Approach (ICD-10-PCS; 2021-01-16)
PROC: B5181ZA Fluoroscopy of Superior Vena Cava using Low Osmolar Contrast, Guidance (ICD-10-PCS; 2021-01-16)
PROC: B548ZZA Ultrasonography of Superior Vena Cava, Guidance (ICD-10-PCS; 2021-01-16)
PROC: 02HV33Z Insertion of Infusion Device into Superior Vena Cava, Percutaneous Approach (ICD-10-PCS; principal; 2021-01-17)
PROC: 5A1D70Z Performance of Urinary Filtration, Intermittent, Less than 6 Hours Per Day (ICD-10-PCS; 2021-01-17)
PROC: 5A1D70Z Performance of Urinary Filtration, Intermittent, Less than 6 Hours Per Day (ICD-10-PCS; 2021-01-18)
PROC: 5A1D70Z Performance of Urinary Filtration, Intermittent, Less than 6 Hours Per Day (ICD-10-PCS; 2021-01-19)
PROC: 5A1D70Z Performance of Urinary Filtration, Intermittent, Less than 6 Hours Per Day (ICD-10-PCS; 2021-01-21)
PROC: 5A1D70Z Performance of Urinary Filtration, Intermittent, Less than 6 Hours Per Day (ICD-10-PCS; 2021-01-24)
PROC: 5A1D70Z Performance of Urinary Filtration, Intermittent, Less than 6 Hours Per Day (ICD-10-PCS; 2021-01-25)
PROC: 5A09357 Assistance with Respiratory Ventilation, Less than 24 Consecutive Hours, Continuous Positive Airway Pressure (ICD-10-PCS; 2021-01-26)
PROC: 02PYX3Z Removal of Infusion Device from Great Vessel, External Approach (ICD-10-PCS; 2021-01-27)
PROC: 02HV33Z Insertion of Infusion Device into Superior Vena Cava, Percutaneous Approach (ICD-10-PCS; 2021-01-27)
PROC: 5A1D70Z Performance of Urinary Filtration, Intermittent, Less than 6 Hours Per Day (ICD-10-PCS; 2021-01-27)
PROC: 5A09457 Assistance with Respiratory Ventilation, 24-96 Consecutive Hours, Continuous Positive Airway Pressure (ICD-10-PCS; 2021-01-28)
PROC: 05HM33Z Insertion of Infusion Device into Right Internal Jugular Vein, Percutaneous Approach (ICD-10-PCS; 2021-01-29)
PROC: 06HY33Z Insertion of Infusion Device into Lower Vein, Percutaneous Approach (ICD-10-PCS; 2021-01-29)
PROC: 5A1D70Z Performance of Urinary Filtration, Intermittent, Less than 6 Hours Per Day (ICD-10-PCS; 2021-01-29)
PROC: 5A1D70Z Performance of Urinary Filtration, Intermittent, Less than 6 Hours Per Day (ICD-10-PCS; 2021-01-30)
PROC: 5A09357 Assistance with Respiratory Ventilation, Less than 24 Consecutive Hours, Continuous Positive Airway Pressure (ICD-10-PCS; 2021-01-31)
PROC: 0JH63XZ Insertion of Tunneled Vascular Access Device into Chest Subcutaneous Tissue and Fascia, Percutaneous Approach (ICD-10-PCS; 2021-01-31)
PROC: 02H633Z Insertion of Infusion Device into Right Atrium, Percutaneous Approach (ICD-10-PCS; 2021-01-31)
PROC: B5181ZA Fluoroscopy of Superior Vena Cava using Low Osmolar Contrast, Guidance (ICD-10-PCS; 2021-01-31)
PROC: B5181ZZ Fluoroscopy of Superior Vena Cava using Low Osmolar Contrast (ICD-10-PCS; 2021-01-31)
PROC: 5A1D70Z Performance of Urinary Filtration, Intermittent, Less than 6 Hours Per Day (ICD-10-PCS; 2021-01-31)
PROC: 5A09357 Assistance with Respiratory Ventilation, Less than 24 Consecutive Hours, Continuous Positive Airway Pressure (ICD-10-PCS; 2021-02-01)
PROC: 5A0935A Assistance with Respiratory Ventilation, Less than 24 Consecutive Hours, High Flow/Velocity Cannula (ICD-10-PCS; 2021-02-01)
PROC: 5A1D70Z Performance of Urinary Filtration, Intermittent, Less than 6 Hours Per Day (ICD-10-PCS; 2021-02-02)
PROC: 5A1D70Z Performance of Urinary Filtration, Intermittent, Less than 6 Hours Per Day (ICD-10-PCS; 2021-02-05)
PROC: 0DH63UZ Insertion of Feeding Device into Stomach, Percutaneous Approach (ICD-10-PCS; 2021-02-07)
PROC: 5A1D70Z Performance of Urinary Filtration, Intermittent, Less than 6 Hours Per Day (ICD-10-PCS; 2021-02-07)
PROC: 5A1D70Z Performance of Urinary Filtration, Intermittent, Less than 6 Hours Per Day (ICD-10-PCS; 2021-02-11)
DX: A41.9 Sepsis, unspecified organism (principal); I50.33 Acute on chronic diastolic (congestive) heart failure; N18.6 End stage renal disease; J69.0 Pneumonitis due to inhalation of food and vomit; E43 Unspecified severe protein-calorie malnutrition; G92.8 Other toxic encephalopathy; I63.9 Cerebral infarction, unspecified; J96.21 Acute and chronic respiratory failure with hypoxia; J18.9 Pneumonia, unspecified organism; I13.2 Hypertensive heart and chronic kidney disease with heart failure and with stage 5 chronic kidney disease, or end stage renal disease; N17.9 Acute kidney failure, unspecified; E66.2 Morbid (severe) obesity with alveolar hypoventilation; T82.41XA Breakdown (mechanical) of vascular dialysis catheter, initial encounter; J44.1 Chronic obstructive pulmonary disease with (acute) exacerbation; J44.0 Chronic obstructive pulmonary disease with (acute) lower respiratory infection; E11.22 Type 2 diabetes mellitus with diabetic chronic kidney disease; E11.649 Type 2 diabetes mellitus with hypoglycemia without coma; F17.210 Nicotine dependence, cigarettes, uncomplicated; L89.152 Pressure ulcer of sacral region, stage 2; Z20.822 Contact with and (suspected) exposure to COVID-19; D63.8 Anemia in other chronic diseases classified elsewhere; E11.40 Type 2 diabetes mellitus with diabetic neuropathy, unspecified; E11.51 Type 2 diabetes mellitus with diabetic peripheral angiopathy without gangrene; E78.00 Pure hypercholesterolemia, unspecified; E78.5 Hyperlipidemia, unspecified; G51.0 Bell's palsy; I25.10 Atherosclerotic heart disease of native coronary artery without angina pectoris; I48.91 Unspecified atrial fibrillation; I95.3 Hypotension of hemodialysis; J44.9 Chronic obstructive pulmonary disease, unspecified; L89.319 Pressure ulcer of right buttock, unspecified stage; L89.329 Pressure ulcer of left buttock, unspecified stage; R13.12 Dysphagia, oropharyngeal phase; W06.XXXA Fall from bed, initial encounter; Y71.2 Prosthetic and other implants, materials and accessory cardiovascular devices associated with adverse incidents; Y84.8 Other medical procedures as the cause of abnormal reaction of the patient, or of later complication, without mention of misadventure at the time of the procedure; Y93.89 Activity, other specified; Y92.238 Other place in hospital as the place of occurrence of the external cause; Z99.2 Dependence on renal dialysis; Y99.8 Other external cause status; Z68.39 Body mass index [BMI] 39.0-39.9, adult; Z79.4 Long term (current) use of insulin; Z79.82 Long term (current) use of aspirin; Z79.899 Other long term (current) drug therapy
CPT/HCPCS: 31500; 36415; 36556; 36580; 36581; 36600; 36800; 43246; 43752; 70450; 70544; 70547; 70551; 71045; 71250; 72170; 74176; 74230; 76770; 77001; 80048; 80053; 80061; 80202; 81001; 82140; 82435; 82550; 82728; 82803; 82947; 82948; 83036; 83540; 83550; 83605; 83735; 83874; 83880; 84100; 84132; 84145; 84295; 84443; 84484; 84550; 85018; 85025; 85027; 85378; 85610; 85730; 86701; 86704; 86706; 87040; 87071; 87088; 87205; 87324; 87340; 87390; 87635; 87804; 90935; 92611; 93005; 93306; 93880; 93970; 94002; 94003; 94640; 94660; 94664; 94668; 97039; 99291; A4606; C1750; C1751; C1752; C1769; C1894; G0378; J0171; J0360; J0456; J0696; J1450; J1644; J1815; J1940; J2060; J2250; J2370; J2543; J2704; J2765; J2920; J3010; J3370; J3490; J7030; J7050; J7070; J7608; P9046; Q9963; Q9967

== ENCOUNTER 2021-08-23 08:11 | Day surgery (SDC) | payer OTHER ==
[~2021-08-23] VITALS: Ht 157.5 cm; Wt 86.2 kg
[~2021-08-23 08:11] MED LIST: AMLO-257 PO; ATOR20TA65 PO; CALC667C10 PO; CYCL30DR OP; ERGO500093 PO; FERR325T29 PO; FLUT1BLS IH; FOLI0.8T22 PO; FURO20TA4 PO; GABA-529 PO; INSU100I13 SQ; LINA72CA PO; LOSA50TA64 PO; METO-408 PO; SODI10PO2 PO; SODI650T PO
[2021-08-23 08:53] LABS: BASOPHILS % (AUTO) 0.8 % (0.0-5.0); EOSINOPHILS % (AUTO) 1.5 % (0.0-8.0); HEMATOCRIT 27.8 % (36-48); LYMPHOCYTES % (AUTO) 30.2 % (21.0-51.0); MEAN CORPUSCULAR HEMOGLOBIN 32.5 pg (27.0-33.0); MEAN CORPUSCULAR HGB CONC 33.8 g/dL (32.0-36.0); MEAN CORPUSCULAR VOLUME 96.2 fL (79-99); MONOCYTES % (AUTO) 5.6 % (3.0-13.0); NEUTROPHILS % (AUTO) 60.5 % (40.0-77.0); PLATELET COUNT (AUTO) 194 K/uL (130-400); RED BLOOD CELL COUNT(AUTO) 2.89 MIL/uL (4.00-5.50); WHITE BLOOD COUNT (AUTO) 5.9 K/uL (4.8-10.8)
[2021-08-23 09:02] LABS: INR 0.97 (0.85-1.15); PROTHROMBIN TIME 10.6 SEC (9.6-11.6)
[2021-08-23 09:03] LABS: PARTIAL THROMBOPLASTIN TIME 31.6 SEC (26.3-35.5)
[2021-08-23 09:06] LABS: BILIRUBIN,TOTAL 0.3 mg/dL (0.2-1.0); CREATININE 5.2 mg/dL (0.5-1.5); POTASSIUM 4.3 mmol/L (3.5-5.1); TOTAL PROTEIN, SERUM 6.5 g/dL (6.0-8.3)
[2021-08-23] MEDS ORDERED: HEPARIN 1,000 UNIT VIAL ONE (10:45)
[2021-08-23] MEDS ORDERED: LIDOCAINE HCL 1% 10 ML VIAL ONE ×2 (10:46→10:52)
[2021-08-23] MEDS ORDERED: MIDAZOLAM HCL 1 MG/ML 2ML VIAL ONE (11:01)
[2021-08-23] MEDS ORDERED: FENTANYL CITRATE PF 50 MCG/1 ML 2ML VIAL ONE (11:02)
[2021-08-23 11:55] VITALS: BP 115/56
[2021-08-23 12:10] VITALS: BP 122/56
[2021-08-23 12:25] VITALS: BP 136/78
[2021-08-23 12:40] VITALS: BP 128/66
== END 2021-08-23 13:16 | disposition home or self-care (01) ==
LOC: EDH 08:11 → CLH 09:52
PROVIDERS: ATTEND Internal Medicine Nephrology
DX: E11.22 Type 2 diabetes mellitus with diabetic chronic kidney disease (principal); I12.0 Hypertensive chronic kidney disease with stage 5 chronic kidney disease or end stage renal disease; N18.6 End stage renal disease; E78.00 Pure hypercholesterolemia, unspecified; Z79.01 Long term (current) use of anticoagulants; Z79.899 Other long term (current) drug therapy; Z98.890 Other specified postprocedural states; Z99.2 Dependence on renal dialysis; Z79.51 Long term (current) use of inhaled steroids; Z79.4 Long term (current) use of insulin; Z79.82 Long term (current) use of aspirin
CPT/HCPCS: 36415; 36558; 71045; 77001; 80053; 85025; 85610; 85730; 86850; 86900; 86901; 87040 ×2; 87635; 99285; C1750; C1894; C9803; J1644 ×2; J3490 ×2; J2250; J3010

== ENCOUNTER 2021-09-11 08:20 | Emergency (ER) | payer OTHER ==
[~2021-09-11] VITALS: Ht 157.5 cm; Wt 99.8 kg
[2021-09-11] MEDS ORDERED: DIAZEPAM 5 MG/ML 2 ML SYG IVP ONE (08:30)
[2021-09-11 08:53] LABS: BASOPHILS % (AUTO) 0.7 % (0.0-5.0); EOSINOPHILS % (AUTO) 0.6 % (0.0-8.0); HEMATOCRIT 32.6 % (36-48); LYMPHOCYTES % (AUTO) 16.4 % (21.0-51.0); MEAN CORPUSCULAR HEMOGLOBIN 33.4 pg (27.0-33.0); MEAN CORPUSCULAR HGB CONC 32.5 g/dL (32.0-36.0); MEAN CORPUSCULAR VOLUME 102.8 fL (79-99); MONOCYTES % (AUTO) 4.8 % (3.0-13.0); NUCLEATED RED BLOOD CELLS 0.4 % (0.0-0.19); PLATELET COUNT (AUTO) 247 K/uL (130-400); RED BLOOD CELL COUNT(AUTO) 3.17 MIL/uL (4.00-5.50); RED CELL DISTRIBUTION WIDTH 16.1 % (11.0-15.5); WHITE BLOOD COUNT (AUTO) 8.5 K/uL (4.8-10.8)
[2021-09-11 08:58] VITALS: BP 189/77
[2021-09-11 09:01] LABS: CREATININE 3.9 mg/dL (0.5-1.5); POTASSIUM 3.8 mmol/L (3.5-5.1)
[2021-09-11 09:05] LABS: ALBUMIN 3.4 g/dL (3.5-5.0); BILIRUBIN,TOTAL 0.2 mg/dL (0.2-1.0); MAGNESIUM 2.1 mg/dL (1.80-2.40); PHOSPHORUS 4.1 mg/dL (2.5-4.9)
[2021-09-11] MEDS ORDERED: DIAZ2TAB PO (10:22)
== END 2021-09-11 10:37 | disposition home or self-care (01) ==
LOC: EDH 08:20
DX: R25.1 Tremor, unspecified (principal); T42.8X5A Adverse effect of antiparkinsonism drugs and other central muscle-tone depressants, initial encounter; F41.9 Anxiety disorder, unspecified; I12.0 Hypertensive chronic kidney disease with stage 5 chronic kidney disease or end stage renal disease; E11.22 Type 2 diabetes mellitus with diabetic chronic kidney disease; N18.6 End stage renal disease; Z99.2 Dependence on renal dialysis; Z79.899 Other long term (current) drug therapy; Z79.4 Long term (current) use of insulin; Y92.89 Other specified places as the place of occurrence of the external cause
CPT/HCPCS: 36415; 70450; 80053; 82140; 83735; 84100; 85025; 96374; 99284; J3360

== ENCOUNTER 2021-09-23 00:23 | Emergency (ER) | payer OTHER ==
[~2021-09-23 00:23] MED LIST changes: +DIAZ2TAB PO
[2021-09-23] MEDS ORDERED: HUMAN PROTHROMBIN COMPLX(PCC) 500 UNIT KIT IV ONE (02:41)
[2021-09-23] MEDS ORDERED: ROCURONIUM BROMIDE 10MG/1ML 5ML VL ONE (02:41)
[2021-09-23] MEDS ORDERED: PROPOFOL 1000 MG/100 ML 100 ML IV ONE (02:43)
[2021-09-23] MEDS ORDERED: ONDANSETRON 4MG INJ ONE (02:46)
[2021-09-23] MEDS ORDERED: NICARDIPINE 25MG INJ IV ONE (02:46)
[2021-09-23 14:18] LABS: APPEARANCE,URINE CLEAR (CLEAR); BILIRUBIN,URINE NEGATIVE (NEGATIVE); COLOR,URINE YELLOW (YELLOW); GLUCOSE, URINE (UA) 250 mg/dL (NEGATIVE); KETONES,URINE NEGATIVE (NEGATIVE); LEUKOCYTE ESTERASE ,URINE NEGATIVE (NEGATIVE); NITRATE,URINE NEGATIVE (NEGATIVE); OCCULT BLOOD,URINE TRACE-INTACT (NEGATIVE); PROTEIN,URINE >=300 mg/dL (NEGATIVE); UROBILINOGEN,URINE 0.2 mg/dL (0.2-1.0)
[2021-09-23 14:20] LABS: BASOPHILS % (AUTO) 0.8 % (0.0-5.0); EOSINOPHILS % (AUTO) 1.3 % (0.0-8.0); HEMATOCRIT 33.7 % (36-48); LYMPHOCYTES % (AUTO) 24.3 % (21.0-51.0); MEAN CORPUSCULAR HEMOGLOBIN 33.9 pg (27.0-33.0); MEAN CORPUSCULAR HGB CONC 33.5 g/dL (32.0-36.0); MEAN CORPUSCULAR VOLUME 101.2 fL (79-99); MONOCYTES % (AUTO) 4.5 % (3.0-13.0); NEUTROPHILS % (AUTO) 68.5 % (40.0-77.0); PLATELET COUNT (AUTO) 279 K/uL (130-400); RED BLOOD CELL COUNT(AUTO) 3.33 MIL/uL (4.00-5.50); RED CELL DISTRIBUTION WIDTH 15.1 % (11.0-15.5); WHITE BLOOD COUNT (AUTO) 8.9 K/uL (4.8-10.8)
[2021-09-23 14:22] LABS: ALBUMIN 3.5 g/dL (3.5-5.0); CREATININE 4.8 mg/dL (0.5-1.5); MAGNESIUM 2.4 mg/dL (1.80-2.40); POTASSIUM 3.9 mmol/L (3.5-5.1); TOTAL PROTEIN, SERUM 7.3 g/dL (6.0-8.3)
[2021-09-23 14:41] LABS: INR 0.97 (0.85-1.15); PARTIAL THROMBOPLASTIN TIME 28.5 SEC (26.3-35.5); PROTHROMBIN TIME 10.6 SEC (9.6-11.6)
[2021-09-23 14:44] LABS: BACTERIA,URINE None Seen /HPF (None Seen); RBC,URINE None Seen /HPF (0-1); SQUAMOUS EPITHELIAL CELL,UR Rare /HPF (0-2); WBC,URINE None Seen /HPF (0-1)
[2021-09-24 08:28] LABS: ABG BASE EXCESS -3.9 mmol/L (-2.0-3.0); ABG HCO3 21.9 mmol/L (21.0-28.0); ABG OXYGEN SATURATION 93.3 % (95.0-99.0); ABG PCO2 43 mmHg (32-45)
[2021-09-24 08:30] LABS: ABG BASE EXCESS -5.6 mmol/L (-2.0-3.0); ABG OXYGEN SATURATION 95.5 % (95.0-99.0); ABG PCO2 40 mmHg (32-45)
== END 2021-09-23 04:13 | disposition critical access hospital (66) ==
LOC: EDH 00:23
DX: I61.9 Nontraumatic intracerebral hemorrhage, unspecified (principal); F14.10 Cocaine abuse, uncomplicated; I12.0 Hypertensive chronic kidney disease with stage 5 chronic kidney disease or end stage renal disease; E11.22 Type 2 diabetes mellitus with diabetic chronic kidney disease; N18.6 End stage renal disease; R11.2 Nausea with vomiting, unspecified; J44.9 Chronic obstructive pulmonary disease, unspecified; F10.10 Alcohol abuse, uncomplicated; F17.200 Nicotine dependence, unspecified, uncomplicated; Z99.2 Dependence on renal dialysis
CPT/HCPCS: 99285; 82435 ×2; 82947 ×2; 83735; 84484; 84132 ×2; 84295 ×2; 80053; 82803 ×2; 85025; 85610; 85730; 85018 ×2; 83605 ×2; 81001; 36415; 71045 ×2; 70450; 96374; 31500; 93005; J3490 ×2; J2704; J2405; C9132